=== PATIENT | female | born 1995 | race Caucasian/White ===

== ENCOUNTER 2022-12-09 18:41 | Emergency (ER) | payer BC | END 2022-12-09 20:19 | disposition left against medical advice (07) | LOC: ED 18:41 | DX: Z53.21 Procedure and treatment not carried out due to patient leaving prior to being seen by health care provider (principal) ==

== ENCOUNTER 2023-08-04 09:35 | Inpatient (IN) | payer BC, OTHER ==
[2023-08-04] MEDS ORDERED: STADOL 2 MG IV PRN (16:00)
[2023-08-04] MEDS ORDERED: Zofran 4 MG/2 ML VIAL IV PRN (16:00)
[2023-08-04] MEDS ORDERED: TYLENOL EXTRA STRENGTH 500 MG PO PRN (16:00)
[2023-08-04 16:38] LABS: BASOPHIL % 0.1 % (0.0-0.4); Basophil (Absolute #) 0.02 x10^3/uL (0-0.4); Eosinophil (Absolute #) 0.13 x10^3/uL (0-0.5); Hematocrit 37.1 % (35-47); Hemoglobin 11.3 g/dL (12.0-16.0); IMMATURE GRAN # 0.07 x10^3u/L (0.00-0.03); IMMATURE GRAN % 0.5 % (0.00-0.4); Lymphocyte (Absolute #) 2.23 x10^3/uL (1.0-4.6); Lymphocytes % 16.4 % (24.0-44.0); Mean Cell Volume 82.8 fL (78-100); Mean Corpuscular Hemoglobin 25.2 pg (26-32); Mean Corpuscular Hgb Concent. 30.5 g/dL (32-36); Mean Platelet Volume 10.7 fL (7.5-11.0); Monocyte (Absolute #) 0.71 x10^3/uL (0.0-1.3); Monocytes % 5.2 % (0.0-12.0); Neutrophil % 76.8 % (36.0-66.0); Platelet Count 270 x10^3/uL (150-450); Red Blood Count 4.48 x10^6/uL (4.1-5.4); Red Cell Distribution Width 15.3 % (11.5-14.0); White Blood Count 13.6 x10^3/uL (4.0-10.5)
[2023-08-04 17:10] LABS: ABO TYPING A; Antibody Screen NEGATIVE (NEGATIVE); RH TYPING POSITIVE
[2023-08-04] MEDS: CYTOTEC PO SCH ×2 (17:26→20:06)
[2023-08-04 18:23] LABS: ADD URINE CULTURE? YES (NO); Appearance Cloudy (Clear); Bacteria Many /HPF (None Seen); Bilirubin Negative (Negative); Blood Negative (Negative); Epithelial Cells Many /HPF (None Seen); Glucose, Urine Negative (Negative); Ketones Trace (Negative); Leukocyte Esterase Large (Negative); Nitrite Negative (Negative); Protein,Urine Dip 30 (Negative); Urobilinogen 0.2 mg/dL (0.2); WBC >100 /HPF (0-5)
[2023-08-04 18:32] LABS: Amphetamine,Urine NEGATIVE (NEGATIVE); Barbiturate,Urine NEGATIVE (NEGATIVE); Benzodiazepine,Urine NEGATIVE (NEGATIVE); Cocaine,Urine NEGATIVE (NEGATIVE); Methadone,Urine NEGATIVE (NEGATIVE); Opiate,Urine NEGATIVE (NEGATIVE); PCP,Urine NEGATIVE (NEGATIVE); THC,Urine NEGATIVE (NEGATIVE)
[2023-08-04] MEDS: Lactated Ringers 1,000 ML IV SCH ×2 (18:41→20:04)
[2023-08-04] MEDS ORDERED: FENTANYL 2 MCG-BUPIV 0.125%-NS 250 ML Epidur 250 ML EPIDURAL ONE (22:34)
[2023-08-05] MEDS: Lactated Ringers 1,000 ML IV SCH (00:52)
[2023-08-05] MEDS: CYTOTEC PO SCH ×2 (00:53→03:14)
[2023-08-05] MEDS ORDERED: PITOCIN 30 UNITS/ LR 500 ML 500 ML IV ONE (02:07)
[2023-08-05] MEDS ORDERED: XYLOCAINE 1% HCL 20 ML MDV ONE (02:26)
[2023-08-05] MEDS ORDERED: MOTRIN 400 MG ONE (05:56)
[2023-08-05] MEDS ORDERED: TUCKS TP ONE (06:45)
[2023-08-05] MEDS ORDERED: Dermoplast Spray ONE (06:45)
[2023-08-05] MEDS: TUCKS TP PRN ×2 (06:46→23:30)
[2023-08-05] MEDS: Dermoplast Spray TP PRN (06:46)
[2023-08-05] MEDS ORDERED: Lactated Ringers 1,000 ML IV ONE (08:00)
[2023-08-05] MEDS ORDERED: FENTANYL 2 MCG-BUPIV 0.125%-NS 250 ML Epidur 250 ML EPIDURAL SCH (08:00)
[2023-08-05] MEDS ORDERED: PITOCIN 30 UNITS/ LR 500 ML 30 UNITS/500 ML PLAST..BAG IV SCH ×2 (08:00→13:00)
[2023-08-05] MEDS ORDERED: Ephedrine Sulfate 50 MG/ML IV PRN (08:00)
[2023-08-05] MEDS ORDERED: ROCEPHIN 1 Gm-D5w 50 ml Bag** 1 G/50 ML IVPB IV ONE (08:32)
[2023-08-05] MEDS ORDERED: Docusate Sodium 100 MG ONE (09:44)
[2023-08-05] MEDS: SYNTHROID 50 MCG PO SCH (09:47)
[2023-08-05] MEDS: Docusate Sodium 100 MG PO SCH ×2 (09:48→23:30)
[2023-08-05] MEDS: TYLENOL EXTRA STRENGTH 500 MG PO PRN ×3 (09:59→23:30)
[2023-08-05] MEDS: MOTRIN 400 MG PO PRN ×2 (13:28→20:00)
[2023-08-05 14:10] LABS: Absolute Neutrophil Ct (ANC) 11.32 x10^3/uL (1.4-6.9); BASOPHIL % 0.2 % (0.0-0.4); Basophil (Absolute #) 0.03 x10^3/uL (0-0.4); Eosinophil % 0.2 % (0.00-5.0); Eosinophil (Absolute #) 0.03 x10^3/uL (0-0.5); Hematocrit 28.2 % (35-47); Hemoglobin 8.7 g/dL (12.0-16.0); IMMATURE GRAN # 0.08 x10^3u/L (0.00-0.03); IMMATURE GRAN % 0.6 % (0.00-0.4); Lymphocyte (Absolute #) 2.03 x10^3/uL (1.0-4.6); Lymphocytes % 14.1 % (24.0-44.0); Mean Cell Volume 82.7 fL (78-100); Mean Corpuscular Hemoglobin 25.5 pg (26-32); Mean Corpuscular Hgb Concent. 30.9 g/dL (32-36); Mean Platelet Volume 10.6 fL (7.5-11.0); Monocyte (Absolute #) 0.92 x10^3/uL (0.0-1.3); Monocytes % 6.4 % (0.0-12.0); Neutrophil % 78.5 % (36.0-66.0); Platelet Count 179 x10^3/uL (150-450); Red Blood Count 3.41 x10^6/uL (4.1-5.4); Red Cell Distribution Width 15.7 % (11.5-14.0); White Blood Count 14.4 x10^3/uL (4.0-10.5)
[2023-08-05] MEDS ORDERED: MOTRIN 400 MG PO PRN (15:00)
[2023-08-05] MEDS ORDERED: Adacel Vial IM ONE (15:00)
[2023-08-05] MEDS ORDERED: LANSINOH 40 GM TOP PRN (15:00)
[2023-08-05] MEDS ORDERED: Mylicon 80MG PO PRN (15:00)
[2023-08-05] MEDS: FERREX 150 PO SCH (15:38)
[2023-08-05] MEDS ORDERED: Dulcolax 10 MG SUPP PR PRN (22:00)
[2023-08-05] MEDS ORDERED: Docusate Sodium 100 MG PO SCH (22:00)
[2023-08-06] MEDS: MOTRIN 400 MG PO PRN ×4 (02:36→23:19)
[2023-08-06] MEDS: TYLENOL EXTRA STRENGTH 500 MG PO PRN ×3 (06:34→19:28)
--- NOTE | 2023-08-06 07:59 | PCM.NOTE ---
Date and Time: 08/06/23 0757 Subjective Assessment: ppd 1 sp pt resting in bed and doing well able to ambulate and tolerate diet vss afebrile abd; soft uterus; firm lochia; mild hgb; 8.7 a/p sp ppd 1 with anemia will continue feso4 bid dc home tomorrow fu office 3 wks OBJECTIVE DATA Vital Signs: Vital Signs - 24 hr Temp Pulse Resp BP Pulse Ox 08/06/23 02:30 98.8 F 68 18 133/86 97 08/05/23 19:54 97.9 F 77 18 131/78 98 08/05/23 16:00 98.4 F 80 16 127/82 98 08/05/23 10:00 98.1 F 81 16 134/71 98 Pain Assessment - Last Documented Pain Intensity [Right] 3 Pain Intensity [Lower] 3 Pain Intensity 4 Pain Scale Used 0-10 Pain Scale Intake and Output: Intake & Output 08/03/23 08/04/23 08/05/23 08/06/23 11:59 11:59 11:59 11:59 Intake Total 1600 500 Output Total 200 Balance 1400 500 Weight 66.224 kg Lab Results: Lab Results-Last 24 Hours 08/05/23 Range/Units 14:05 WBC 14.4 H (4.0-10.5) x10^3/uL RBC 3.41 L (4.1-5.4) x10^6/uL Hgb 8.7 L D (12.0-16.0) g/dL Hct 28.2 L (35-47) % MCV 82.7 (78-100) fL MCH 25.5 L (26-32) pg MCHC 30.9 L (32-36) g/dL RDW 15.7 H (11.5-14.0) % Plt Count 179 (150-450) x10^3/uL MPV 10.6 (7.5-11.0) fL Gran % 78.5 H (36.0-66.0) % Immature Gran % (Auto) 0.6 H (0.00-0.4) % Nucleat RBC Rel Count 0.0 (0.00-0.1) % Eos # (Auto) 0.03 (0-0.5) x10^3/uL Immature Gran # (Auto) 0.08 H (0.00-0.03) x10^3u/L Absolute Lymphs (auto) 2.03 (1.0-4.6) x10^3/uL Absolute Monos (auto) 0.92 (0.0-1.3) x10^3/uL Absolute Nucleated RBC 0.00 (0.00-0.01) x10^3u/L Lymphocytes % 14.1 L (24.0-44.0) % Monocytes % 6.4 (0.0-12.0) % Eosinophils % 0.2 (0.00-5.0) % Basophils % 0.2 (0.0-0.4) % Absolute Granulocytes 11.32 H (1.4-6.9) x10^3/uL Basophils # 0.03 (0-0.4) x10^3/uL Assessment/Plan (1) Anemia Current Visit: Yes Status: Acute Code(s): D64.9 - ANEMIA, UNSPECIFIED (2) Vaginal delivery Current Visit: Yes Status: Acute Code(s): O80 - ENCOUNTER FOR FULL-TERM UNCOMPLICATED DELIVERY (3) anemia Current Visit: Yes Status: Acute Code(s): O90.81 - ANEMIA OF THE PUERPERIUM
--- NOTE | 2023-08-06 08:03 | PCM.DS ---
Discharge Summary Date of Admission: 08/04/23 22:10 Admitting Physician: MARYLOU SHERIFF DO Consults: Consults on Case 08/05/23 04:13 Navigation ONCE 08/05/23 08:00 Notify Anesthesia Provider PRN 08/05/23 15:00 Notify Physician ROUTINE Primary Care Provider: JASE SOLORIO NP Allergies Allergies No Known Drug Allergies Allergy (Verified 08/04/23 19:13) Hospital Summary - Hospital Course Hospital Course: pt admitted on aug 04 for bailon induction and oral cytotec at 39 wks gestation and delivered live baby girl via without complication on aug 05. during period did well able to ambulate and tolerate diet however with anemia and was started on feso4 bid. pt at this time stable for discharge on aug 07 and was given rx of iron supplementation to take bid for 30 days. all questions answered to her satisfaction and will fu in office in 3 wks - Vitals & Intake/Output Vital Signs: Vital Signs Temperature 98.8 F 08/06/23 02:30 Pulse Rate 68 08/06/23 02:30 Respiratory Rate 18 08/06/23 02:30 Blood Pressure 133/86 08/06/23 02:30 O2 Sat by Pulse Oximetry 97 08/06/23 02:30 Intake & Output: Intake & Output 08/03/23 08/04/23 08/05/23 08/06/23 11:59 11:59 11:59 11:59 Intake Total 1600 500 Output Total 200 Balance 1400 500 Weight 66.224 kg - Lab Result Diagrams: 08/05/23 14:05 Lab Results-Last 24 Hrs: Lab Results-Last 24 Hours 08/05/23 Range/Units 14:05 WBC 14.4 H (4.0-10.5) x10^3/uL RBC 3.41 L (4.1-5.4) x10^6/uL Hgb 8.7 L D (12.0-16.0) g/dL Hct 28.2 L (35-47) % MCV 82.7 (78-100) fL MCH 25.5 L (26-32) pg MCHC 30.9 L (32-36) g/dL RDW 15.7 H (11.5-14.0) % Plt Count 179 (150-450) x10^3/uL MPV 10.6 (7.5-11.0) fL Gran % 78.5 H (36.0-66.0) % Immature Gran % (Auto) 0.6 H (0.00-0.4) % Nucleat RBC Rel Count 0.0 (0.00-0.1) % Eos # (Auto) 0.03 (0-0.5) x10^3/uL Immature Gran # (Auto) 0.08 H (0.00-0.03) x10^3u/L Absolute Lymphs (auto) 2.03 (1.0-4.6) x10^3/uL Absolute Monos (auto) 0.92 (0.0-1.3) x10^3/uL Absolute Nucleated RBC 0.00 (0.00-0.01) x10^3u/L Lymphocytes % 14.1 L (24.0-44.0) % Monocytes % 6.4 (0.0-12.0) % Eosinophils % 0.2 (0.00-5.0) % Basophils % 0.2 (0.0-0.4) % Absolute Granulocytes 11.32 H (1.4-6.9) x10^3/uL Basophils # 0.03 (0-0.4) x10^3/uL Micro Results-Entire Visit: Microbiology 08/04/23 18:05 Urine Culture - Final Clean Catch Midstream MIXED CRICKET; 3 OR MORE TYPES. NO PREDOMINANT ORGANISM. NO FURTHER WORKUP. PLEASE RESUBMIT IF CLINICALLY INDICATED. Final Diagnosis/Problem List - Final Discharge Diagnosis/Problem (1) Anemia Current Visit: Yes Status: Acute Code(s): D64.9 - ANEMIA, UNSPECIFIED (2) Vaginal delivery Current Visit: Yes Status: Acute Code(s): O80 - ENCOUNTER FOR FULL-TERM UNCOMPLICATED DELIVERY (3) anemia Current Visit: Yes Status: Acute Code(s): O90.81 - ANEMIA OF THE PUERPERIUM - Discharge Disposition: Home, Self-Care Condition: Stable Prescriptions: New Ferrous Sulfate 325 mg [Feosol 325 mg] 325 mg PO BID #60 tablet No Action Levothyroxine Sodium 50 Mcg [Synthroid 50 Mcg] 50 mcg PO DAILY Follow up with: SOLORIO,JASE J., FACILITIES ENGINEERING MANAGER [Primary Care Provider] - MARYLOU SHERIFF DO [ACTIVE STAFF] - 3 weeks
[2023-08-06] MEDS: FERREX 150 PO SCH ×2 (08:43→23:19)
[2023-08-06] MEDS: Docusate Sodium 100 MG PO SCH ×2 (08:44→23:18)
[2023-08-06] MEDS: SYNTHROID 50 MCG PO SCH (11:54)
[2023-08-07 03:38] VITALS: RESP 18; TEMP 98.3
[2023-08-07] MEDS: TYLENOL EXTRA STRENGTH 500 MG PO PRN (03:53)
[2023-08-07] MEDS: TUCKS TP PRN (06:01)
[2023-08-07] MEDS: SYNTHROID 50 MCG PO SCH (07:40)
[2023-08-07] MEDS: Docusate Sodium 100 MG PO SCH (07:40)
[2023-08-07] MEDS: MOTRIN 400 MG PO PRN (07:40)
[2023-08-07] MEDS: FERREX 150 PO SCH (07:40)
[2023-08-07] MEDS: Dermoplast Spray TP PRN (08:27)
[2023-08-07 11:19] VITALS: BP 127/73; PULSE 67; O2SAT 98
== END 2023-08-07 10:00 | disposition home or self-care (01) | DRG 807 ==
LOC: OB 16:02 → OBSVTOIN 22:10 → OB 22:10
PROVIDERS: ADMIT Obstetrics & Gynecology; ATTEND Obstetrics & Gynecology
PROC: 10E0XZZ Delivery of Products of Conception, External Approach (ICD-10-PCS; principal; 2023-08-05)
PROC: 0KQM0ZZ Repair Perineum Muscle, Open Approach (ICD-10-PCS; 2023-08-05)
DX: O70.1 Second degree perineal laceration during delivery (principal); Z37.0 Single live birth; Z3A.39 39 weeks gestation of pregnancy; O90.81 Anemia of the puerperium; Z20.828 Contact with and (suspected) exposure to other viral communicable diseases
CPT/HCPCS: 36415; 80307; 81001; 85025; 86850; 86900; 86901; 87086; 90471; 90715; J0696; J2590; A9270-GY

== ENCOUNTER 2023-08-09 13:53 | Observation (INO) | payer BC, OTHER ==
[2023-08-09] MEDS ORDERED: TUCKS TP PRN (14:08)
[2023-08-09] MEDS ORDERED: MOTRIN 400 MG PO ONE (14:10)
[2023-08-09 14:38] LABS: Absolute Neutrophil Ct (ANC) 6.95 x10^3/uL (1.4-6.9); BASOPHIL % 0.3 % (0.0-0.4); Basophil (Absolute #) 0.03 x10^3/uL (0-0.4); Eosinophil (Absolute #) 0.52 x10^3/uL (0-0.5); Hematocrit 33.8 % (35-47); Hemoglobin 10.4 g/dL (12.0-16.0); IMMATURE GRAN # 0.08 x10^3u/L (0.00-0.03); IMMATURE GRAN % 0.8 % (0.00-0.4); Lymphocyte (Absolute #) 2.32 x10^3/uL (1.0-4.6); Lymphocytes % 22.3 % (24.0-44.0); Mean Cell Volume 82.8 fL (78-100); Mean Corpuscular Hemoglobin 25.5 pg (26-32); Mean Corpuscular Hgb Concent. 30.8 g/dL (32-36); Mean Platelet Volume 9.6 fL (7.5-11.0); Monocyte (Absolute #) 0.51 x10^3/uL (0.0-1.3); Monocytes % 4.9 % (0.0-12.0); Neutrophil % 66.7 % (36.0-66.0); Platelet Count 278 x10^3/uL (150-450); Red Blood Count 4.08 x10^6/uL (4.1-5.4); Red Cell Distribution Width 15.8 % (11.5-14.0); White Blood Count 10.4 x10^3/uL (4.0-10.5)
[2023-08-09 14:47] LABS: Appearance Cloudy (Clear); Bacteria None Seen /HPF (None Seen); Bilirubin Negative (Negative); Blood Large (Negative); Epithelial Cells Few /HPF (None Seen); Glucose, Urine Negative (Negative); Hyaline Casts NONE SEEN /LPF (0-2); Ketones 80 (Negative); Leukocyte Esterase Small (Negative); Nitrite Negative (Negative); Ph 5.5 (4.6-8.0); Protein,Urine Dip 100 (Negative); RBC >100 /HPF (0-5); Specific Gravity >=1.030 (1.005-1.030); WBC 51-100 /HPF (0-5)
[2023-08-09 14:56] LABS: ALBUMIN 3.8 g/dL (3.5-5.0); ANION GAP 13.6 MEQ/L (5-15); BILIRUBIN,TOTAL 0.3 mg/dL (0.2-1.3); Calcium 8.7 mg/dL (8.4-10.2); Creatinine 1 0.6 mg/dL (0.52-1.04); EST GLOMERULAR FILTRATION RATE 127.7 ML/MIN; Potassium 3.9 mmol/L (3.5-5.1); Total Protein 7.3 g/dL (6.3-8.2)
[2023-08-09 14:58] LABS: ADD URINE CULTURE? YES (NO); Amphetamine,Urine NEGATIVE (NEGATIVE); Barbiturate,Urine NEGATIVE (NEGATIVE); Benzodiazepine,Urine NEGATIVE (NEGATIVE); Cocaine,Urine NEGATIVE (NEGATIVE); Methadone,Urine NEGATIVE (NEGATIVE); Opiate,Urine NEGATIVE (NEGATIVE); PCP,Urine NEGATIVE (NEGATIVE); THC,Urine NEGATIVE (NEGATIVE)
[2023-08-09] MEDS ORDERED: APRESOLINE 20 MG/ML INJ IV ONE (15:24)
[2023-08-09] MEDS ORDERED: MOTRIN 400 MG ONE (15:28)
[2023-08-09] MEDS ORDERED: APRESOLINE 20 MG/ML INJ ONE (15:28)
--- NOTE | 2023-08-09 15:34 | ERPHSYRPT ---
- History of Present Illness Time Seen by Provider: 08/09/23 14:30 Source: patient, family Exam Limitations: no limitations Patient Subjective Stated Complaint: HTN- Post op delivery Triage Nursing Assessment: Patient ambulated back to ED and transferred self to bed. Patient A+O x3. Patient's skin pink, warm and dry. Patient came to OB for 48 hour check up after delivery on 08/05/2023. OB nurse noted blood pressure being elevated at 146/98. OB nurse called Dr. Espinosa and was told to send patient to ED for eval and treat. Patient complains of vaginal pain 12/30. Physician History: Patient is a 1 para 0 white female who presents at 4 days for routine check. However elevated blood pressure was noted of 146/98. Patient was sent to the ER with requested lab work to rule out preeclamps ia.Patient denies a headache. Severity: moderate Modifying Factors: Improves With: acetaminophen, ibuprofen Allergies/Adverse Reactions: No Known Drug Allergies Allergy (Verified 08/09/23 14:09) Home Medications: Levothyroxine Sodium 50 Mcg [Synthroid 50 Mcg] 50 mcg PO DAILY 08/04/23 [History] Hx Influenza Vaccination/Date Given: No Hx Pneumococcal Vaccination/Date Given: No Immunizations Up to Date: Yes Travel Risk - International Travel Have you traveled outside of the country in past 3 weeks: No - Coronavirus Screening Are you exhibiting any of the following symptoms?: No Close contact with a COVID-19 positive Pt in past 14-21 Days: No - Vaccine Status Have you recieved a Covid-19 vaccination: No - Review of Systems Constitutional: No Fever, No Chills Eyes: No Symptoms Ears, Nose, & Throat: No Symptoms Respiratory: No Cough, No Dyspnea Cardiac: No Chest Pain, No Edema, No Syncope Abdominal/Gastrointestinal: No Abdominal Pain, No Nausea, No Vomiting, No Diarrh ea Genitourinary Symptoms: No Dysuria Musculoskeletal: No Back Pain, No Neck Pain Skin: No Rash Neurological: No Dizziness, No Focal Weakness, No Sensory Changes Psychological: No Symptoms Endocrine: No Symptoms All Other Systems: Reviewed and Negative - Past Medical History Neurological History: Migraines ENT History: No Pertinent History Cardiac History: No Pertinent History Respiratory History: No Pertinent History Endocrine Medical History: Hypothyroidism Musculoskeletal History: No Pertinent History GI Medical History: No Pertinent History History: No Pertinent History Psycho-Social History: No Pertinent History Female Reproductive Disorders: No Pertinent History - Past Surgical History Past Surgical History: Yes (wisdom tooth extraction) Neuro Surgical History: No Pertinent History Cardiac: No Pertinent History Respiratory: No Pertinent History Gastrointestinal: No Pertinent History Genitourinary: No Pertinent History Musculoskeletal: No Pertinent History Female Surgical History: No Pertinent History - Social History Smoking Status: Never smoker Exposure to second hand smoke: No Drug Use: none Patient Lives Alone: No - Female History Hx Last Menstrual Period: 9 months Hx Now: No - Nursing Vital Signs Nursing Vital Signs: Initial Vital Signs Temperature 98.0 F 08/09/23 14:11 Pulse Rate 81 08/09/23 14:11 Respiratory Rate 18 08/09/23 14:11 Blood Pressure 161/111 08/09/23 14:11 O2 Sat by Pulse Oximetry 98 08/09/23 14:11 Pain Scale Pain Intensity 0 - Physical Exam General Appearance: no apparent distress, alert Eye Exam: PERRL/EOMI, eyes nml inspection Ears, Nose, Throat Exam: normal ENT inspection, TMs normal, pharynx normal, moist mucous membranes Neck Exam: normal inspection, non-tender, supple, full range of motion Respiratory Exam: normal breath sounds, lungs clear, No respiratory distress Cardiovascular Exam: regular rate/rhythm, normal heart sounds, normal peripheral pulses Gastrointestinal/Abdomen Exam: soft, normal bowel sounds, No tenderness, No mass Back Exam: normal inspection, normal range of motion, No CVA tenderness, No vertebral tenderness Extremity Exam: normal inspection, normal range of motion, pelvis stable Neurologic Exam: alert, oriented x 3, cooperative, normal mood/affect, nml cerebellar function, nml station & gait, sensation nml, No motor deficits Skin Exam: normal color, warm, dry, No rash Lymphatic Exam: No adenopathy SpO2: 95 - Course Nursing assessment & vital signs reviewed: Yes Ordered Tests: Active Orders 24 hr Category Date Time Status IV Insertion STAT Care 08/09/23 14:17 Active CBC W DIFF Stat Lab 08/09/23 14:38 Completed CMP Stat Lab 08/09/23 14:38 Completed CULTURE,URINE Stat Lab 08/09/23 14:27 Received D-DIMER QUANTITATIVE Stat Lab 08/09/23 14:38 Received FIBRINOGEN Stat Lab 08/09/23 14:38 Received LDH-LACTATE DEHYDROGENASE Stat Lab 08/09/23 14:38 Completed MAGNESIUM Stat Lab 08/09/23 14:38 Completed PROTIME WITH INR Stat Lab 08/09/23 14:38 Received PTT Stat Lab 08/09/23 14:38 Received UA W/RFX UR CULTURE Stat Lab 08/09/23 14:27 Completed Uric Acid Stat Lab 08/09/23 15:48 Completed Urine Triage Profile Stat Lab 08/09/23 14:27 Completed Medication Summary Generic Name Dose Route Start Last Admin Trade Name Freq PRN Reason Stop Dose Admin Amanda Gutierrez 1 pad 08/09/23 14:08 08/09/23 14:25 Amanda Gutierrez 1 Pad Med..Pad TP 09/08/23 14:07 1 pad Q2H/PRN PRN Administration PAIN Discontinued Medications Generic Name Dose Route Start Last Admin Trade Name Freq PRN Reason Stop Dose Admin Hydralazine HCl 5 mg 08/09/23 15:24 08/09/23 15:29 Hydralazine Hcl 20 Mg/Ml Vial IV 08/09/23 15:25 5 mg STAT ONE Administration Hydralazine HCl Confirm 08/09/23 15:28 Hydralazine Hcl 20 Mg/Ml Vial Administered 08/09/23 15:29 Dose 20 mg .ROUTE .STK-MED ONE Ibuprofen 800 mg 08/09/23 14:10 08/09/23 15:29 Ibuprofen 400 Mg Tablet PO 08/09/23 14:11 800 mg STAT ONE Administration Ibuprofen Confirm 08/09/23 15:28 Ibuprofen 400 Mg Tablet Administered 08/09/23 15:29 Dose 800 mg .ROUTE .STK-MED ONE Lab/Rad Data: Laboratory Result Diagrams 08/09/23 14:38 08/09/23 14:38 Laboratory Results 08/09/23 08/09/23 08/09/23 Range/Units 15:48 14:38 14:38 WBC 10.4 (4.0-10.5) x10^3/uL RBC 4.08 L (4.1-5.4) x10^6/uL Hgb 10.4 L (12.0-16.0) g/dL Hct 33.8 L (35-47) % MCV 82.8 (78-100) fL MCH 25.5 L (26-32) pg MCHC 30.8 L (32-36) g/dL RDW 15.8 H (11.5-14.0) % Plt Count 278 (150-450) x10^3/uL MPV 9.6 (7.5-11.0) fL Gran % 66.7 H (36.0-66.0) % Immature Gran % (Auto) 0.8 H (0.00-0.4) % Nucleat RBC Rel Count 0.0 (0.00-0.1) % Eos # (Auto) 0.52 H (0-0.5) x10^3/uL Immature Gran # (Auto) 0.08 H (0.00-0.03) x10^3u/L Absolute Lymphs (auto) 2.32 (1.0-4.6) x10^3/uL Absolute Monos (auto) 0.51 (0.0-1.3) x10^3/uL Absolute Nucleated RBC 0.00 (0.00-0.01) x10^3u/L Lymphocytes % 22.3 L (24.0-44.0) % Monocytes % 4.9 (0.0-12.0) % Eosinophils % 5.0 (0.00-5.0) % Basophils % 0.3 (0.0-0.4) % Absolute Granulocytes 6.95 H (1.4-6.9) x10^3/uL Basophils # 0.03 (0-0.4) x10^3/uL Sodium 137 (137-145) mmol/L Potassium 3.9 (3.5-5.1) mmol/L Chloride 108 H (98-107) mmol/L Carbon Dioxide 19 L (22-30) mmol/L Anion Gap 13.6 (5-15) MEQ/L BUN 15 (7-17) mg/dL Creatinine 0.60 (0.52-1.04) mg/dL Estimated GFR 127.7 ML/MIN Glucose 82 (74-106) mg/dL Uric Acid 7.1 H (2.6-6.0) mg/dL Calcium 8.7 (8.4-10.2) mg/dL Magnesium 2.0 (1.6-2.3) mg/dL Total Bilirubin 0.30 (0.2-1.3) mg/dL AST 36 (14-36) U/L ALT 39 H (0-35) U/L Alkaline Phosphatase 123 (38-126) U/L Lactate Dehydrogenase 328 H (120-246) U/L Serum Total Protein 7.3 (6.3-8.2) g/dL Albumin 3.8 (3.5-5.0) g/dL Urine Color (Yellow) Urine Appearance (Clear) Urine pH (4.6-8.0) Ur Specific [place] (1.005-1.030) Urine Protein (Negative) Urine Glucose (UA) (Negative) mg/dL Urine Ketones (Negative) Urine Blood (Negative) Urine Nitrite (Negative) Urine Bilirubin (Negative) Urine Urobilinogen (0.2) mg/dL Ur Leukocyte Esterase (Negative) U Hyaline Cast (Auto) (0-2) /LPF Urine Microscopic RBC (0-5) /HPF Urine Microscopic WBC (0-5) /HPF Ur Epithelial Cells (None Seen) /HPF Urine Bacteria (None Seen) /HPF Urine Culture Reflexed (NO) Urine Opiates Level (NEGATIVE) Ur Methadone (NEGATIVE) Urine Barbiturates (NEGATIVE) Ur Phencyclidine (PCP) (NEGATIVE) Urine Amphetamine (NEGATIVE) U Benzodiazepine Level (NEGATIVE) Urine Cocaine (NEGATIVE) Urine Marijuana (THC) (NEGATIVE) 08/09/23 08/09/23 Range/Units 14:27 14:27 WBC (4.0-10.5) x10^3/uL RBC (4.1-5.4) x10^6/uL Hgb (12.0-16.0) g/dL Hct (35-47) % MCV (78-100) fL MCH (26-32) pg MCHC (32-36) g/dL RDW (11.5-14.0) % Plt Count (150-450) x10^3/uL MPV (7.5-11.0) fL Gran % (36.0-66.0) % Immature Gran % (Auto) (0.00-0.4) % Nucleat RBC Rel Count (0.00-0.1) % Eos # (Auto) (0-0.5) x10^3/uL Immature Gran # (Auto) (0.00-0.03) x10^3u/L Absolute Lymphs (auto) (1.0-4.6) x10^3/uL Absolute Monos (auto) (0.0-1.3) x10^3/uL Absolute Nucleated RBC (0.00-0.01) x10^3u/L Lymphocytes % (24.0-44.0) % Monocytes % (0.0-12.0) % Eosinophils % (0.00-5.0) % Basophils % (0.0-0.4) % Absolute Granulocytes (1.4-6.9) x10^3/uL Basophils # (0-0.4) x10^3/uL Sodium (137-145) mmol/L Potassium (3.5-5.1) mmol/L Chloride (98-107) mmol/L Carbon Dioxide (22-30) mmol/L Anion Gap (5-15) MEQ/L BUN (7-17) mg/dL Creatinine (0.52-1.04) mg/dL Estimated GFR ML/MIN Glucose (74-106) mg/dL Uric Acid (2.6-6.0) mg/dL Calcium (8.4-10.2) mg/dL Magnesium (1.6-2.3) mg/dL Total Bilirubin (0.2-1.3) mg/dL AST (14-36) U/L ALT (0-35) U/L Alkaline Phosphatase (38-126) U/L Lactate Dehydrogenase (120-246) U/L Serum Total Protein (6.3-8.2) g/dL Albumin (3.5-5.0) g/dL Urine Color Yellow (Yellow) Urine Appearance Cloudy A (Clear) Urine pH 5.5 (4.6-8.0) Ur Specific [place] >=1.030 A (1.005-1.030) Urine Protein 100 A (Negative) Urine Glucose (UA) Negative (Negative) mg/dL Urine Ketones 80 A (Negative) Urine Blood Large A (Negative) Urine Nitrite Negative (Negative) Urine Bilirubin Negative (Negative) Urine Urobilinogen 1.0 A (0.2) mg/dL Ur Leukocyte Esterase Small A (Negative) U Hyaline Cast (Auto) NONE SEEN (0-2) /LPF Urine Microscopic RBC >100 A (0-5) /HPF Urine Microscopic WBC 51-100 A (0-5) /HPF Ur Epithelial Cells Few (None Seen) /HPF Urine Bacteria None Seen (None Seen) /HPF Urine Culture Reflexed YES (NO) Urine Opiates Level NEGATIVE (NEGATIVE) Ur Methadone NEGATIVE (NEGATIVE) Urine Barbiturates NEGATIVE (NEGATIVE) Ur Phencyclidine (PCP) NEGATIVE (NEGATIVE) Urine Amphetamine NEGATIVE (NEGATIVE) U Benzodiazepine Level NEGATIVE (NEGATIVE) Urine Cocaine NEGATIVE (NEGATIVE) Urine Marijuana (THC) NEGATIVE (NEGATIVE) - Progress Progress: unchanged Discussed with : Marcia Will see patient in: hospital (observation) Medical Desision Making - Independent Historian Additional History obtained from: Spouse - Discussion of managment Care discussed with:: specialist (Dr Espinosa) Agreed on:: Treatment plan Will see patient: in hospital - Diagnostic Testing Diagnostic test were ordered, analyzed, and reviewed by me: Yes - Risk of complications Low Risk: Low risk of morbidity from additional dx testing or treatment - Departure Departure Disposition: Observation Clinical Impression: Preeclampsia in period Condition: Fair Critical Care Time: No Referrals: JASE SOLORIO RESIDENCE LIFE COORDINATOR [Primary Care Provider] - Follow up/PCP as directed
[2023-08-09 16:17] LABS: INR 0.89 (0.8-3.0); PROTIME 9.8 SECONDS (9.4-12.5); PTT 25.2 SECONDS (25.1-36.5)
[2023-08-09 16:20] LABS: D-DIMER QUANTITATIVE 1.58 mg/L (0.0-0.50)
[2023-08-09] MEDS ORDERED: Magnesium Sulfate 40 Gm/1000 Ml H2O Premix*** 1,000 ML IV SCH (16:30)
[2023-08-09] MEDS ORDERED: Ativan 2 MG/1 ML VIAL ONE (16:44)
[2023-08-09] MEDS ORDERED: Trandate 100 MG PO STA (16:45)
[2023-08-09] MEDS ORDERED: TRANDATE 100 MG/20 ML MDV FOR DRIP IV ONE (16:45)
[2023-08-09] MEDS ORDERED: Ativan 2 MG/1 ML VIAL IV ONE (16:46)
[2023-08-09] MEDS ORDERED: Lactated Ringers 1,000 ML IV ONE (16:51)
[2023-08-09] MEDS: Lactated Ringers 1,000 ML IV SCH (16:52)
[2023-08-09] MEDS ORDERED: XYLOCAINE 2% Uro-Jet ONE (17:09)
[2023-08-09] MEDS ORDERED: XYLOCAINE 2% Uro-Jet TOP ONE (17:09)
[2023-08-09] MEDS ORDERED: Zofran 4 MG/2 ML VIAL ONE (17:33)
[2023-08-09] MEDS ORDERED: Zofran 4 MG/2 ML VIAL IV STA (17:33)
[2023-08-09] MEDS ORDERED: TYLENOL 325 MG PO PRN (20:38)
[2023-08-09] MEDS ORDERED: MOTRIN 600 MG PO PRN (20:40)
[2023-08-10] MEDS ORDERED: MOTRIN 400 MG ONE (04:08)
[2023-08-10] MEDS ORDERED: MOTRIN 600 MG PO PRN (04:11)
[2023-08-10] MEDS: MOTRIN 400 MG PO PRN ×2 (04:17→13:10)
[2023-08-10] MEDS: Trandate 100 MG PO SCH ×3 (04:53→16:45)
[2023-08-10] MEDS: Lactated Ringers 1,000 ML IV SCH (05:03)
[2023-08-10] MEDS ORDERED: TYLENOL EXTRA STRENGTH 500 MG ONE (06:14)
[2023-08-10] MEDS: TYLENOL EXTRA STRENGTH 500 MG PO PRN ×3 (06:27→16:05)
[2023-08-10 06:43] LABS: Absolute Neutrophil Ct (ANC) 6.11 x10^3/uL (1.4-6.9); BASOPHIL % 0.3 % (0.0-0.4); Basophil (Absolute #) 0.03 x10^3/uL (0-0.4); Eosinophil % 5.1 % (0.00-5.0); Eosinophil (Absolute #) 0.48 x10^3/uL (0-0.5); Hematocrit 31.4 % (35-47); Hemoglobin 9.7 g/dL (12.0-16.0); IMMATURE GRAN # 0.07 x10^3u/L (0.00-0.03); IMMATURE GRAN % 0.8 % (0.00-0.4); Lymphocyte (Absolute #) 2.09 x10^3/uL (1.0-4.6); Lymphocytes % 22.4 % (24.0-44.0); Mean Cell Volume 82.4 fL (78-100); Mean Corpuscular Hemoglobin 25.5 pg (26-32); Mean Corpuscular Hgb Concent. 30.9 g/dL (32-36); Mean Platelet Volume 9.3 fL (7.5-11.0); Monocyte (Absolute #) 0.55 x10^3/uL (0.0-1.3); Monocytes % 5.9 % (0.0-12.0); Neutrophil % 65.5 % (36.0-66.0); Platelet Count 246 x10^3/uL (150-450); Red Blood Count 3.81 x10^6/uL (4.1-5.4); Red Cell Distribution Width 15.9 % (11.5-14.0); White Blood Count 9.3 x10^3/uL (4.0-10.5)
[2023-08-10 07:08] LABS: ALBUMIN 3.1 g/dL (3.5-5.0); ANION GAP 11.7 MEQ/L (5-15); BILIRUBIN,TOTAL 0.3 mg/dL (0.2-1.3); Creatinine 1 0.45 mg/dL (0.52-1.04); EST GLOMERULAR FILTRATION RATE 136.8 ML/MIN; Potassium 3.4 mmol/L (3.5-5.1); Total Protein 6.1 g/dL (6.3-8.2)
[2023-08-10 07:23] LABS: Calcium 6.2 mg/dL (8.4-10.2)
[2023-08-10 10:15] VITALS: TEMP 97.4
[2023-08-10] MEDS ORDERED: Magnesium Sulfate 40 Gm/1000 Ml H2O Premix*** 1,000 ML IV SCH (11:00)
--- NOTE | 2023-08-10 11:19 | PCM.NOTE ---
Date and Time: 08/10/23 1115 Subjective Assessment: pt sp recently with noted elevated bp when bringing baby for evaluation. pt with headache and was noted having several elevated bp yesterday and was sent to er for evaluation and after labs obtained it was determined to admit pt for magsulfate at 2gm/hr and start labetolol 200mg bid. at this time pt doing better and labs reviewed. vss afebrle abd; soft uterus;firm hgb; 9.7 a/p sp with preeclampsia will dc mgso4 today will continue labetolol 200mg bid will likely dc home today and fu in office next friday OBJECTIVE DATA Vital Signs: Vital Signs - 24 hr Temp Pulse Resp BP BP Pulse Ox 08/10/23 10:00 97.4 F 74 18 122/78 122/78 99 08/10/23 09:00 79 18 128/80 128/80 99 08/10/23 08:00 75 16 127/82 127/82 98 08/10/23 07:00 90 18 127/82 127/82 98 08/10/23 06:00 97.5 F 81 20 123/72 123/72 98 08/10/23 05:00 75 20 117/73 133/81 98 08/10/23 04:00 97.3 F 75 20 117/73 117/73 98 08/10/23 03:00 67 20 119/75 119/75 98 08/10/23 02:00 76 20 122/73 122/73 98 08/10/23 01:00 98.9 F 78 20 134/84 134/84 98 08/10/23 00:00 98.3 F 80 20 131/86 131/86 98 08/09/23 23:00 85 20 127/73 127/73 96 08/09/23 22:00 93 H 20 141/83 141/83 98 08/09/23 21:00 98.3 F 87 20 139/79 139/79 98 08/09/23 20:38 87 20 124/67 96 08/09/23 20:00 82 20 138/75 138/75 98 08/09/23 19:30 104 H 20 146/90 98 08/09/23 19:15 98.3 F 99 H 18 135/84 97 08/09/23 19:00 128 H 20 137/72 98 08/09/23 18:51 95 H 18 135/78 96 08/09/23 18:47 95 H 18 137/83 96 08/09/23 18:42 111 H 18 137/83 97 08/09/23 18:37 109 H 20 140/88 97 08/09/23 18:32 118 H 20 141/95 97 08/09/23 18:27 114 H 20 141/92 97 08/09/23 18:00 97.6 F 122 H 20 139/92 96 08/09/23 17:37 115 H 18 161/114 96 08/09/23 16:54 126 H 18 161/125 96 08/09/23 16:43 122 H 18 169/124 96 08/09/23 16:10 95 08/09/23 16:01 112 H 18 149/99 96 08/09/23 16:00 122 H 20 149/99 97 08/09/23 15:54 112 H 18 147/101 96 08/09/23 15:45 109 H 22 148/103 97 08/09/23 15:30 113 H 21 145/107 96 08/09/23 15:26 89 21 153/112 96 08/09/23 15:15 83 21 145/117 96 08/09/23 15:12 78 16 148/112 148/112 95 08/09/23 14:50 94 H 18 158/121 96 08/09/23 14:37 90 18 144/114 97 08/09/23 14:11 98.0 F 81 18 161/111 98 Pain Assessment - Last Documented Pain Intensity 3 Pain Scale Used 0-10 Pain Scale Intake and Output: Intake & Output 08/07/23 08/08/23 08/09/23 08/10/23 11:59 11:59 11:59 11:59 Intake Total 3415 Output Total 2500 Balance 915 Weight 66.224 kg Lab Results: Lab Results-Last 24 Hours 08/09/23 08/09/23 08/09/23 Range/Units 14:27 14:27 14:38 WBC 10.4 (4.0-10.5) x10^3/uL RBC 4.08 L (4.1-5.4) x10^6/uL Hgb 10.4 L (12.0-16.0) g/dL Hct 33.8 L (35-47) % MCV 82.8 (78-100) fL MCH 25.5 L (26-32) pg MCHC 30.8 L (32-36) g/dL RDW 15.8 H (11.5-14.0) % Plt Count 278 (150-450) x10^3/uL MPV 9.6 (7.5-11.0) fL Gran % 66.7 H (36.0-66.0) % Immature Gran % (Auto) 0.8 H (0.00-0.4) % Nucleat RBC Rel Count 0.0 (0.00-0.1) % Eos # (Auto) 0.52 H (0-0.5) x10^3/uL Immature Gran # (Auto) 0.08 H (0.00-0.03) x10^3u/L Absolute Lymphs (auto) 2.32 (1.0-4.6) x10^3/uL Absolute Monos (auto) 0.51 (0.0-1.3) x10^3/uL Absolute Nucleated RBC 0.00 (0.00-0.01) x10^3u/L Lymphocytes % 22.3 L (24.0-44.0) % Monocytes % 4.9 (0.0-12.0) % Eosinophils % 5.0 (0.00-5.0) % Basophils % 0.3 (0.0-0.4) % Absolute Granulocytes 6.95 H (1.4-6.9) x10^3/uL Basophils # 0.03 (0-0.4) x10^3/uL PT (9.4-12.5) SECONDS INR (0.8-3.0) APTT (25.1-36.5) SECONDS Fibrinogen Activity (200-400) mg/dL D-Dimer (0.0-0.50) mg/L Sodium (137-145) mmol/L Potassium (3.5-5.1) mmol/L Chloride (98-107) mmol/L Carbon Dioxide (22-30) mmol/L Anion Gap (5-15) MEQ/L BUN (7-17) mg/dL Creatinine (0.52-1.04) mg/dL Estimated GFR ML/MIN Glucose (74-106) mg/dL Uric Acid (2.6-6.0) mg/dL Calcium (8.4-10.2) mg/dL Magnesium (1.6-2.3) mg/dL Total Bilirubin (0.2-1.3) mg/dL AST (14-36) U/L ALT (0-35) U/L Alkaline Phosphatase (38-126) U/L Lactate Dehydrogenase (120-246) U/L Serum Total Protein (6.3-8.2) g/dL Albumin (3.5-5.0) g/dL Urine Color Yellow (Yellow) Urine Appearance Cloudy A (Clear) Urine pH 5.5 (4.6-8.0) Ur Specific [place] >=1.030 A (1.005-1.030) Urine Protein 100 A (Negative) Urine Glucose (UA) Negative (Negative) mg/dL Urine Ketones 80 A (Negative) Urine Blood Large A (Negative) Urine Nitrite Negative (Negative) Urine Bilirubin Negative (Negative) Urine Urobilinogen 1.0 A (0.2) mg/dL Ur Leukocyte Esterase Small A (Negative) U Hyaline Cast (Auto) NONE SEEN (0-2) /LPF Urine Microscopic RBC >100 A (0-5) /HPF Urine Microscopic WBC 51-100 A (0-5) /HPF Ur Epithelial Cells Few (None Seen) /HPF Urine Bacteria None Seen (None Seen) /HPF Urine Culture Reflexed YES (NO) Urine Opiates Level NEGATIVE (NEGATIVE) Ur Methadone NEGATIVE (NEGATIVE) Urine Barbiturates NEGATIVE (NEGATIVE) Ur Phencyclidine (PCP) NEGATIVE (NEGATIVE) Urine Amphetamine NEGATIVE (NEGATIVE) U Benzodiazepine Level NEGATIVE (NEGATIVE) Urine Cocaine NEGATIVE (NEGATIVE) Urine Marijuana (THC) NEGATIVE (NEGATIVE) 08/09/23 08/09/23 08/09/23 Range/Units 14:38 14:38 15:48 WBC (4.0-10.5) x10^3/uL RBC (4.1-5.4) x10^6/uL Hgb (12.0-16.0) g/dL Hct (35-47) % MCV (78-100) fL MCH (26-32) pg MCHC (32-36) g/dL RDW (11.5-14.0) % Plt Count (150-450) x10^3/uL MPV (7.5-11.0) fL Gran % (36.0-66.0) % Immature Gran % (Auto) (0.00-0.4) % Nucleat RBC Rel Count (0.00-0.1) % Eos # (Auto) (0-0.5) x10^3/uL Immature Gran # (Auto) (0.00-0.03) x10^3u/L Absolute Lymphs (auto) (1.0-4.6) x10^3/uL Absolute Monos (auto) (0.0-1.3) x10^3/uL Absolute Nucleated RBC (0.00-0.01) x10^3u/L Lymphocytes % (24.0-44.0) % Monocytes % (0.0-12.0) % Eosinophils % (0.00-5.0) % Basophils % (0.0-0.4) % Absolute Granulocytes (1.4-6.9) x10^3/uL Basophils # (0-0.4) x10^3/uL PT 9.8 (9.4-12.5) SECONDS INR 0.89 (0.8-3.0) APTT 25.2 (25.1-36.5) SECONDS Fibrinogen Activity 487 H (200-400) mg/dL D-Dimer 1.58 H* (0.0-0.50) mg/L Sodium 137 (137-145) mmol/L Potassium 3.9 (3.5-5.1) mmol/L Chloride 108 H (98-107) mmol/L Carbon Dioxide 19 L (22-30) mmol/L Anion Gap 13.6 (5-15) MEQ/L BUN 15 (7-17) mg/dL Creatinine 0.60 (0.52-1.04) mg/dL Estimated GFR 127.7 ML/MIN Glucose 82 (74-106) mg/dL Uric Acid 7.1 H (2.6-6.0) mg/dL Calcium 8.7 (8.4-10.2) mg/dL Magnesium 2.0 (1.6-2.3) mg/dL Total Bilirubin 0.30 (0.2-1.3) mg/dL AST 36 (14-36) U/L ALT 39 H (0-35) U/L Alkaline Phosphatase 123 (38-126) U/L Lactate Dehydrogenase 328 H (120-246) U/L Serum Total Protein 7.3 (6.3-8.2) g/dL Albumin 3.8 (3.5-5.0) g/dL Urine Color (Yellow) Urine Appearance (Clear) Urine pH (4.6-8.0) Ur Specific [place] (1.005-1.030) Urine Protein (Negative) Urine Glucose (UA) (Negative) mg/dL Urine Ketones (Negative) Urine Blood (Negative) Urine Nitrite (Negative) Urine Bilirubin (Negative) Urine Urobilinogen (0.2) mg/dL Ur Leukocyte Esterase (Negative) U Hyaline Cast (Auto) (0-2) /LPF Urine Microscopic RBC (0-5) /HPF Urine Microscopic WBC (0-5) /HPF Ur Epithelial Cells (None Seen) /HPF Urine Bacteria (None Seen) /HPF Urine Culture Reflexed (NO) Urine Opiates Level (NEGATIVE) Ur Methadone (NEGATIVE) Urine Barbiturates (NEGATIVE) Ur Phencyclidine (PCP) (NEGATIVE) Urine Amphetamine (NEGATIVE) U Benzodiazepine Level (NEGATIVE) Urine Cocaine (NEGATIVE) Urine Marijuana (THC) (NEGATIVE) 08/10/23 08/10/23 08/10/23 Range/Units 00:32 06:42 06:42 WBC 9.3 (4.0-10.5) x10^3/uL RBC 3.81 L (4.1-5.4) x10^6/uL Hgb 9.7 L (12.0-16.0) g/dL Hct 31.4 L (35-47) % MCV 82.4 (78-100) fL MCH 25.5 L (26-32) pg MCHC 30.9 L (32-36) g/dL RDW 15.9 H (11.5-14.0) % Plt Count 246 (150-450) x10^3/uL MPV 9.3 (7.5-11.0) fL Gran % 65.5 (36.0-66.0) % Immature Gran % (Auto) 0.8 H (0.00-0.4) % Nucleat RBC Rel Count 0.0 (0.00-0.1) % Eos # (Auto) 0.48 (0-0.5) x10^3/uL Immature Gran # (Auto) 0.07 H (0.00-0.03) x10^3u/L Absolute Lymphs (auto) 2.09 (1.0-4.6) x10^3/uL Absolute Monos (auto) 0.55 (0.0-1.3) x10^3/uL Absolute Nucleated RBC 0.00 (0.00-0.01) x10^3u/L Lymphocytes % 22.4 L (24.0-44.0) % Monocytes % 5.9 (0.0-12.0) % Eosinophils % 5.1 H (0.00-5.0) % Basophils % 0.3 (0.0-0.4) % Absolute Granulocytes 6.11 (1.4-6.9) x10^3/uL Basophils # 0.03 (0-0.4) x10^3/uL PT (9.4-12.5) SECONDS INR (0.8-3.0) APTT (25.1-36.5) SECONDS Fibrinogen Activity (200-400) mg/dL D-Dimer (0.0-0.50) mg/L Sodium (137-145) mmol/L Potassium (3.5-5.1) mmol/L Chloride (98-107) mmol/L Carbon Dioxide (22-30) mmol/L Anion Gap (5-15) MEQ/L BUN (7-17) mg/dL Creatinine (0.52-1.04) mg/dL Estimated GFR ML/MIN Glucose (74-106) mg/dL Uric Acid (2.6-6.0) mg/dL Calcium (8.4-10.2) mg/dL Magnesium 6.4 H* 7.1 H* (1.6-2.3) mg/dL Total Bilirubin (0.2-1.3) mg/dL AST (14-36) U/L ALT (0-35) U/L Alkaline Phosphatase (38-126) U/L Lactate Dehydrogenase (120-246) U/L Serum Total Protein (6.3-8.2) g/dL Albumin (3.5-5.0) g/dL Urine Color (Yellow) Urine Appearance (Clear) Urine pH (4.6-8.0) Ur Specific [place] (1.005-1.030) Urine Protein (Negative) Urine Glucose (UA) (Negative) mg/dL Urine Ketones (Negative) Urine Blood (Negative) Urine Nitrite (Negative) Urine Bilirubin (Negative) Urine Urobilinogen (0.2) mg/dL Ur Leukocyte Esterase (Negative) U Hyaline Cast (Auto) (0-2) /LPF Urine Microscopic RBC (0-5) /HPF Urine Microscopic WBC (0-5) /HPF Ur Epithelial Cells (None Seen) /HPF Urine Bacteria (None Seen) /HPF Urine Culture Reflexed (NO) Urine Opiates Level (NEGATIVE) Ur Methadone (NEGATIVE) Urine Barbiturates (NEGATIVE) Ur Phencyclidine (PCP) (NEGATIVE) Urine Amphetamine (NEGATIVE) U Benzodiazepine Level (NEGATIVE) Urine Cocaine (NEGATIVE) Urine Marijuana (THC) (NEGATIVE) 08/10/23 Range/Units 06:42 WBC (4.0-10.5) x10^3/uL RBC (4.1-5.4) x10^6/uL Hgb (12.0-16.0) g/dL Hct (35-47) % MCV (78-100) fL MCH (26-32) pg MCHC (32-36) g/dL RDW (11.5-14.0) % Plt Count (150-450) x10^3/uL MPV (7.5-11.0) fL Gran % (36.0-66.0) % Immature Gran % (Auto) (0.00-0.4) % Nucleat RBC Rel Count (0.00-0.1) % Eos # (Auto) (0-0.5) x10^3/uL Immature Gran # (Auto) (0.00-0.03) x10^3u/L Absolute Lymphs (auto) (1.0-4.6) x10^3/uL Absolute Monos (auto) (0.0-1.3) x10^3/uL Absolute Nucleated RBC (0.00-0.01) x10^3u/L Lymphocytes % (24.0-44.0) % Monocytes % (0.0-12.0) % Eosinophils % (0.00-5.0) % Basophils % (0.0-0.4) % Absolute Granulocytes (1.4-6.9) x10^3/uL Basophils # (0-0.4) x10^3/uL PT (9.4-12.5) SECONDS INR (0.8-3.0) APTT (25.1-36.5) SECONDS Fibrinogen Activity (200-400) mg/dL D-Dimer (0.0-0.50) mg/L Sodium 135 L (137-145) mmol/L Potassium 3.4 L (3.5-5.1) mmol/L Chloride 107 (98-107) mmol/L Carbon Dioxide 20 L (22-30) mmol/L Anion Gap 11.7 (5-15) MEQ/L BUN 7 (7-17) mg/dL Creatinine 0.45 L (0.52-1.04) mg/dL Estimated GFR 136.8 ML/MIN Glucose 96 (74-106) mg/dL Uric Acid (2.6-6.0) mg/dL Calcium 6.2 L D (8.4-10.2) mg/dL Magnesium (1.6-2.3) mg/dL Total Bilirubin 0.30 (0.2-1.3) mg/dL AST 27 (14-36) U/L ALT 28 (0-35) U/L Alkaline Phosphatase 118 (38-126) U/L Lactate Dehydrogenase (120-246) U/L Serum Total Protein 6.1 L (6.3-8.2) g/dL Albumin 3.1 L (3.5-5.0) g/dL Urine Color (Yellow) Urine Appearance (Clear) Urine pH (4.6-8.0) Ur Specific [place] (1.005-1.030) Urine Protein (Negative) Urine Glucose (UA) (Negative) mg/dL Urine Ketones (Negative) Urine Blood (Negative) Urine Nitrite (Negative) Urine Bilirubin (Negative) Urine Urobilinogen (0.2) mg/dL Ur Leukocyte Esterase (Negative) U Hyaline Cast (Auto) (0-2) /LPF Urine Microscopic RBC (0-5) /HPF Urine Microscopic WBC (0-5) /HPF Ur Epithelial Cells (None Seen) /HPF Urine Bacteria (None Seen) /HPF Urine Culture Reflexed (NO) Urine Opiates Level (NEGATIVE) Ur Methadone (NEGATIVE) Urine Barbiturates (NEGATIVE) Ur Phencyclidine (PCP) (NEGATIVE) Urine Amphetamine (NEGATIVE) U Benzodiazepine Level (NEGATIVE) Urine Cocaine (NEGATIVE) Urine Marijuana (THC) (NEGATIVE) Assessment/Plan (1) Preeclampsia in period Current Visit: Yes Status: Acute Code(s): O14.95 - UNSPECIFIED PRE-ECLAMPS IA, COMPLICATING THE PUERPERIUM
--- NOTE | 2023-08-10 11:23 | PCM.HP ---
History of Present Illness - Chief Complaint Chief Complaint: Preeclampsia in period History of Present Illness: is a 27 year old female. pt admitted for noted having elevated bp while bringing her baby for evaluation into labor delivery. pt also noted having headache. pt sent to er for evaluation and after labs obtained it was determined to admit and start magso4 at 2gm/hr and start labetolol 200mg bid. pt was already given hydralazine 5mg iv in er secondary to severe htn. pt was then stabilized and sent to labor delivery. pt at this time has had stable bp and labs redone were much improved. pt at this time will have her magso4 discontinued and if bp stable by 4 pm will dc home with fu in office in 1 wk for bp evaluation. pt will be sent a prescription for labetolol to her pharmacy as well as antibiotic for uti. all questions answered to her satisfaction. Medications & Allergies Home Medications: Home Medication List Levothyroxine Sodium 50 Mcg [Synthroid 50 Mcg] 50 mcg PO DAILY 08/04/23 [History Confirmed 08/09/23] Ferrous Sulfate 325 mg [Feosol 325 mg] 325 mg PO BID #60 tablet 08/06/23 [Rx Confirmed 08/09/23] Allergies/Adverse Reactions: Allergies Allergy/AdvReac Type Severity Reaction Status Date / Time No Known Drug Allergies Allergy Verified 08/09/23 14:09 - Past Medical History Past Medical History: Yes Neurological History: Migraines ENT History: No Pertinent History Cardiac History: No Pertinent History Respiratory History: No Pertinent History Endocrine Medical History: Hypothyroidism Musculoskelatal History: No Pertinent History GI Medical History: No Pertinent History History: No Pertinent History Pyscho-Social History: No Pertinent History Reproductive Disorders: No Pertinent History - Female History Hx Last Menstrual Period: 9 months Are you now?: No - Past Surgical History Past Surgical History: Yes (wisdom tooth extraction) Neuro Surgical History: No Pertinent History Cardiac History: No Pertinent History Respiratory Surgery: No Pertinent History GI Surgical History: No Pertinent History Genitourinary Surgical Hx: No Pertinent History Musculskeletal Surgical Hx: No Pertinent History Female Surgical History: No Pertinent History - Social History Smoking Status: Never smoker Exposure to second hand smoke: No Alcohol: None Drug Use: none - Physical Exam Vital Signs: Vital Signs - 24 hr Temp Pulse Resp BP BP Pulse Ox 08/10/23 10:00 97.4 F 74 18 122/78 122/78 99 08/10/23 09:00 79 18 128/80 128/80 99 08/10/23 08:00 75 16 127/82 127/82 98 08/10/23 07:00 90 18 127/82 127/82 98 08/10/23 06:00 97.5 F 81 20 123/72 123/72 98 08/10/23 05:00 75 20 117/73 133/81 98 08/10/23 04:00 97.3 F 75 20 117/73 117/73 98 08/10/23 03:00 67 20 119/75 119/75 98 08/10/23 02:00 76 20 122/73 122/73 98 08/10/23 01:00 98.9 F 78 20 134/84 134/84 98 08/10/23 00:00 98.3 F 80 20 131/86 131/86 98 08/09/23 23:00 85 20 127/73 127/73 96 08/09/23 22:00 93 H 20 141/83 141/83 98 08/09/23 21:00 98.3 F 87 20 139/79 139/79 98 08/09/23 20:38 87 20 124/67 96 08/09/23 20:00 82 20 138/75 138/75 98 08/09/23 19:30 104 H 20 146/90 98 08/09/23 19:15 98.3 F 99 H 18 135/84 97 08/09/23 19:00 128 H 20 137/72 98 08/09/23 18:51 95 H 18 135/78 96 08/09/23 18:47 95 H 18 137/83 96 08/09/23 18:42 111 H 18 137/83 97 08/09/23 18:37 109 H 20 140/88 97 08/09/23 18:32 118 H 20 141/95 97 08/09/23 18:27 114 H 20 141/92 97 08/09/23 18:00 97.6 F 122 H 20 139/92 96 08/09/23 17:37 115 H 18 161/114 96 08/09/23 16:54 126 H 18 161/125 96 08/09/23 16:43 122 H 18 169/124 96 08/09/23 16:10 95 08/09/23 16:01 112 H 18 149/99 96 08/09/23 16:00 122 H 20 149/99 97 08/09/23 15:54 112 H 18 147/101 96 08/09/23 15:45 109 H 22 148/103 97 08/09/23 15:30 113 H 21 145/107 96 08/09/23 15:26 89 21 153/112 96 08/09/23 15:15 83 21 145/117 96 08/09/23 15:12 78 16 148/112 148/112 95 08/09/23 14:50 94 H 18 158/121 96 08/09/23 14:37 90 18 144/114 97 08/09/23 14:11 98.0 F 81 18 161/111 98 Results - Labs Lab/Micro Results: Lab Results-Last 24 Hours 08/09/23 08/09/23 08/09/23 Range/Units 14:27 14:27 14:38 WBC 10.4 (4.0-10.5) x10^3/uL RBC 4.08 L (4.1-5.4) x10^6/uL Hgb 10.4 L (12.0-16.0) g/dL Hct 33.8 L (35-47) % MCV 82.8 (78-100) fL MCH 25.5 L (26-32) pg MCHC 30.8 L (32-36) g/dL RDW 15.8 H (11.5-14.0) % Plt Count 278 (150-450) x10^3/uL MPV 9.6 (7.5-11.0) fL Gran % 66.7 H (36.0-66.0) % Immature Gran % (Auto) 0.8 H (0.00-0.4) % Nucleat RBC Rel Count 0.0 (0.00-0.1) % Eos # (Auto) 0.52 H (0-0.5) x10^3/uL Immature Gran # (Auto) 0.08 H (0.00-0.03) x10^3u/L Absolute Lymphs (auto) 2.32 (1.0-4.6) x10^3/uL Absolute Monos (auto) 0.51 (0.0-1.3) x10^3/uL Absolute Nucleated RBC 0.00 (0.00-0.01) x10^3u/L Lymphocytes % 22.3 L (24.0-44.0) % Monocytes % 4.9 (0.0-12.0) % Eosinophils % 5.0 (0.00-5.0) % Basophils % 0.3 (0.0-0.4) % Absolute Granulocytes 6.95 H (1.4-6.9) x10^3/uL Basophils # 0.03 (0-0.4) x10^3/uL PT (9.4-12.5) SECONDS INR (0.8-3.0) APTT (25.1-36.5) SECONDS Fibrinogen Activity (200-400) mg/dL D-Dimer (0.0-0.50) mg/L Sodium (137-145) mmol/L Potassium (3.5-5.1) mmol/L Chloride (98-107) mmol/L Carbon Dioxide (22-30) mmol/L Anion Gap (5-15) MEQ/L BUN (7-17) mg/dL Creatinine (0.52-1.04) mg/dL Estimated GFR ML/MIN Glucose (74-106) mg/dL Uric Acid (2.6-6.0) mg/dL Calcium (8.4-10.2) mg/dL Magnesium (1.6-2.3) mg/dL Total Bilirubin (0.2-1.3) mg/dL AST (14-36) U/L ALT (0-35) U/L Alkaline Phosphatase (38-126) U/L Lactate Dehydrogenase (120-246) U/L Serum Total Protein (6.3-8.2) g/dL Albumin (3.5-5.0) g/dL Urine Color Yellow (Yellow) Urine Appearance Cloudy A (Clear) Urine pH 5.5 (4.6-8.0) Ur Specific [place] >=1.030 A (1.005-1.030) Urine Protein 100 A (Negative) Urine Glucose (UA) Negative (Negative) mg/dL Urine Ketones 80 A (Negative) Urine Blood Large A (Negative) Urine Nitrite Negative (Negative) Urine Bilirubin Negative (Negative) Urine Urobilinogen 1.0 A (0.2) mg/dL Ur Leukocyte Esterase Small A (Negative) U Hyaline Cast (Auto) NONE SEEN (0-2) /LPF Urine Microscopic RBC >100 A (0-5) /HPF Urine Microscopic WBC 51-100 A (0-5) /HPF Ur Epithelial Cells Few (None Seen) /HPF Urine Bacteria None Seen (None Seen) /HPF Urine Culture Reflexed YES (NO) Urine Opiates Level NEGATIVE (NEGATIVE) Ur Methadone NEGATIVE (NEGATIVE) Urine Barbiturates NEGATIVE (NEGATIVE) Ur Phencyclidine (PCP) NEGATIVE (NEGATIVE) Urine Amphetamine NEGATIVE (NEGATIVE) U Benzodiazepine Level NEGATIVE (NEGATIVE) Urine Cocaine NEGATIVE (NEGATIVE) Urine Marijuana (THC) NEGATIVE (NEGATIVE) 08/09/23 08/09/23 08/09/23 Range/Units 14:38 14:38 15:48 WBC (4.0-10.5) x10^3/uL RBC (4.1-5.4) x10^6/uL Hgb (12.0-16.0) g/dL Hct (35-47) % MCV (78-100) fL MCH (26-32) pg MCHC (32-36) g/dL RDW (11.5-14.0) % Plt Count (150-450) x10^3/uL MPV (7.5-11.0) fL Gran % (36.0-66.0) % Immature Gran % (Auto) (0.00-0.4) % Nucleat RBC Rel Count (0.00-0.1) % Eos # (Auto) (0-0.5) x10^3/uL Immature Gran # (Auto) (0.00-0.03) x10^3u/L Absolute Lymphs (auto) (1.0-4.6) x10^3/uL Absolute Monos (auto) (0.0-1.3) x10^3/uL Absolute Nucleated RBC (0.00-0.01) x10^3u/L Lymphocytes % (24.0-44.0) % Monocytes % (0.0-12.0) % Eosinophils % (0.00-5.0) % Basophils % (0.0-0.4) % Absolute Granulocytes (1.4-6.9) x10^3/uL Basophils # (0-0.4) x10^3/uL PT 9.8 (9.4-12.5) SECONDS INR 0.89 (0.8-3.0) APTT 25.2 (25.1-36.5) SECONDS Fibrinogen Activity 487 H (200-400) mg/dL D-Dimer 1.58 H* (0.0-0.50) mg/L Sodium 137 (137-145) mmol/L Potassium 3.9 (3.5-5.1) mmol/L Chloride 108 H (98-107) mmol/L Carbon Dioxide 19 L (22-30) mmol/L Anion Gap 13.6 (5-15) MEQ/L BUN 15 (7-17) mg/dL Creatinine 0.60 (0.52-1.04) mg/dL Estimated GFR 127.7 ML/MIN Glucose 82 (74-106) mg/dL Uric Acid 7.1 H (2.6-6.0) mg/dL Calcium 8.7 (8.4-10.2) mg/dL Magnesium 2.0 (1.6-2.3) mg/dL Total Bilirubin 0.30 (0.2-1.3) mg/dL AST 36 (14-36) U/L ALT 39 H (0-35) U/L Alkaline Phosphatase 123 (38-126) U/L Lactate Dehydrogenase 328 H (120-246) U/L Serum Total Protein 7.3 (6.3-8.2) g/dL Albumin 3.8 (3.5-5.0) g/dL Urine Color (Yellow) Urine Appearance (Clear) Urine pH (4.6-8.0) Ur Specific [place] (1.005-1.030) Urine Protein (Negative) Urine Glucose (UA) (Negative) mg/dL Urine Ketones (Negative) Urine Blood (Negative) Urine Nitrite (Negative) Urine Bilirubin (Negative) Urine Urobilinogen (0.2) mg/dL Ur Leukocyte Esterase (Negative) U Hyaline Cast (Auto) (0-2) /LPF Urine Microscopic RBC (0-5) /HPF Urine Microscopic WBC (0-5) /HPF Ur Epithelial Cells (None Seen) /HPF Urine Bacteria (None Seen) /HPF Urine Culture Reflexed (NO) Urine Opiates Level (NEGATIVE) Ur Methadone (NEGATIVE) Urine Barbiturates (NEGATIVE) Ur Phencyclidine (PCP) (NEGATIVE) Urine Amphetamine (NEGATIVE) U Benzodiazepine Level (NEGATIVE) Urine Cocaine (NEGATIVE) Urine Marijuana (THC) (NEGATIVE) 08/10/23 08/10/23 08/10/23 Range/Units 00:32 06:42 06:42 WBC 9.3 (4.0-10.5) x10^3/uL RBC 3.81 L (4.1-5.4) x10^6/uL Hgb 9.7 L (12.0-16.0) g/dL Hct 31.4 L (35-47) % MCV 82.4 (78-100) fL MCH 25.5 L (26-32) pg MCHC 30.9 L (32-36) g/dL RDW 15.9 H (11.5-14.0) % Plt Count 246 (150-450) x10^3/uL MPV 9.3 (7.5-11.0) fL Gran % 65.5 (36.0-66.0) % Immature Gran % (Auto) 0.8 H (0.00-0.4) % Nucleat RBC Rel Count 0.0 (0.00-0.1) % Eos # (Auto) 0.48 (0-0.5) x10^3/uL Immature Gran # (Auto) 0.07 H (0.00-0.03) x10^3u/L Absolute Lymphs (auto) 2.09 (1.0-4.6) x10^3/uL Absolute Monos (auto) 0.55 (0.0-1.3) x10^3/uL Absolute Nucleated RBC 0.00 (0.00-0.01) x10^3u/L Lymphocytes % 22.4 L (24.0-44.0) % Monocytes % 5.9 (0.0-12.0) % Eosinophils % 5.1 H (0.00-5.0) % Basophils % 0.3 (0.0-0.4) % Absolute Granulocytes 6.11 (1.4-6.9) x10^3/uL Basophils # 0.03 (0-0.4) x10^3/uL PT (9.4-12.5) SECONDS INR (0.8-3.0) APTT (25.1-36.5) SECONDS Fibrinogen Activity (200-400) mg/dL D-Dimer (0.0-0.50) mg/L Sodium (137-145) mmol/L Potassium (3.5-5.1) mmol/L Chloride (98-107) mmol/L Carbon Dioxide (22-30) mmol/L Anion Gap (5-15) MEQ/L BUN (7-17) mg/dL Creatinine (0.52-1.04) mg/dL Estimated GFR ML/MIN Glucose (74-106) mg/dL Uric Acid (2.6-6.0) mg/dL Calcium (8.4-10.2) mg/dL Magnesium 6.4 H* 7.1 H* (1.6-2.3) mg/dL Total Bilirubin (0.2-1.3) mg/dL AST (14-36) U/L ALT (0-35) U/L Alkaline Phosphatase (38-126) U/L Lactate Dehydrogenase (120-246) U/L Serum Total Protein (6.3-8.2) g/dL Albumin (3.5-5.0) g/dL Urine Color (Yellow) Urine Appearance (Clear) Urine pH (4.6-8.0) Ur Specific [place] (1.005-1.030) Urine Protein (Negative) Urine Glucose (UA) (Negative) mg/dL Urine Ketones (Negative) Urine Blood (Negative) Urine Nitrite (Negative) Urine Bilirubin (Negative) Urine Urobilinogen (0.2) mg/dL Ur Leukocyte Esterase (Negative) U Hyaline Cast (Auto) (0-2) /LPF Urine Microscopic RBC (0-5) /HPF Urine Microscopic WBC (0-5) /HPF Ur Epithelial Cells (None Seen) /HPF Urine Bacteria (None Seen) /HPF Urine Culture Reflexed (NO) Urine Opiates Level (NEGATIVE) Ur Methadone (NEGATIVE) Urine Barbiturates (NEGATIVE) Ur Phencyclidine (PCP) (NEGATIVE) Urine Amphetamine (NEGATIVE) U Benzodiazepine Level (NEGATIVE) Urine Cocaine (NEGATIVE) Urine Marijuana (THC) (NEGATIVE) 08/10/23 Range/Units 06:42 WBC (4.0-10.5) x10^3/uL RBC (4.1-5.4) x10^6/uL Hgb (12.0-16.0) g/dL Hct (35-47) % MCV (78-100) fL MCH (26-32) pg MCHC (32-36) g/dL RDW (11.5-14.0) % Plt Count (150-450) x10^3/uL MPV (7.5-11.0) fL Gran % (36.0-66.0) % Immature Gran % (Auto) (0.00-0.4) % Nucleat RBC Rel Count (0.00-0.1) % Eos # (Auto) (0-0.5) x10^3/uL Immature Gran # (Auto) (0.00-0.03) x10^3u/L Absolute Lymphs (auto) (1.0-4.6) x10^3/uL Absolute Monos (auto) (0.0-1.3) x10^3/uL Absolute Nucleated RBC (0.00-0.01) x10^3u/L Lymphocytes % (24.0-44.0) % Monocytes % (0.0-12.0) % Eosinophils % (0.00-5.0) % Basophils % (0.0-0.4) % Absolute Granulocytes (1.4-6.9) x10^3/uL Basophils # (0-0.4) x10^3/uL PT (9.4-12.5) SECONDS INR (0.8-3.0) APTT (25.1-36.5) SECONDS Fibrinogen Activity (200-400) mg/dL D-Dimer (0.0-0.50) mg/L Sodium 135 L (137-145) mmol/L Potassium 3.4 L (3.5-5.1) mmol/L Chloride 107 (98-107) mmol/L Carbon Dioxide 20 L (22-30) mmol/L Anion Gap 11.7 (5-15) MEQ/L BUN 7 (7-17) mg/dL Creatinine 0.45 L (0.52-1.04) mg/dL Estimated GFR 136.8 ML/MIN Glucose 96 (74-106) mg/dL Uric Acid (2.6-6.0) mg/dL Calcium 6.2 L D (8.4-10.2) mg/dL Magnesium (1.6-2.3) mg/dL Total Bilirubin 0.30 (0.2-1.3) mg/dL AST 27 (14-36) U/L ALT 28 (0-35) U/L Alkaline Phosphatase 118 (38-126) U/L Lactate Dehydrogenase (120-246) U/L Serum Total Protein 6.1 L (6.3-8.2) g/dL Albumin 3.1 L (3.5-5.0) g/dL Urine Color (Yellow) Urine Appearance (Clear) Urine pH (4.6-8.0) Ur Specific [place] (1.005-1.030) Urine Protein (Negative) Urine Glucose (UA) (Negative) mg/dL Urine Ketones (Negative) Urine Blood (Negative) Urine Nitrite (Negative) Urine Bilirubin (Negative) Urine Urobilinogen (0.2) mg/dL Ur Leukocyte Esterase (Negative) U Hyaline Cast (Auto) (0-2) /LPF Urine Microscopic RBC (0-5) /HPF Urine Microscopic WBC (0-5) /HPF Ur Epithelial Cells (None Seen) /HPF Urine Bacteria (None Seen) /HPF Urine Culture Reflexed (NO) Urine Opiates Level (NEGATIVE) Ur Methadone (NEGATIVE) Urine Barbiturates (NEGATIVE) Ur Phencyclidine (PCP) (NEGATIVE) Urine Amphetamine (NEGATIVE) U Benzodiazepine Level (NEGATIVE) Urine Cocaine (NEGATIVE) Urine Marijuana (THC) (NEGATIVE) Microbiology 08/09/23 14:27 Urine Culture - Preliminary Clean Catch Midstream GRAM POSITIVE ID AND SENSITIVITY PENDING Assessment/Plan (1) Preeclampsia in period Current Visit: Yes Status: Acute Code(s): O14.95 - UNSPECIFIED PRE- ECLAMPSIA, COMPLICATING THE PUERPERIUM (2) Urinary tract bacterial infections Current Visit: Yes Status: Acute Code(s): N39.0 - URINARY TRACT INFECTION, SITE NOT SPECIFIED; A49.9 - BACTERIAL INFECTION, UNSPECIFIED
--- NOTE | 2023-08-10 11:27 | PCM.DS ---
Discharge Summary Date of Admission: 08/09/23 17:57 Admitting Physician: MARYLOU SHERIFF DO Consults: Consults on Case 08/09/23 16:21 Notify Physician ROUTINE Primary Care Provider: JASE SOLORIO NP Allergies Allergies No Known Drug Allergies Allergy (Verified 08/09/23 14:09) Hospital Summary - Hospital Course Hospital Course: pt admitted on aug 09 for preecalmpsia since she delivered several days ago and was placed on magso4 at 2gm/hr and bp stabilized while on labetolol 200mg bid and will be sent home on labetolol 200mg bid. pt was alson noted having uti and rocephin 1gm given and rx for macrobid bid 7 days was sent to her pharmacy. pt at this time had labs redrawn in am and improved since admission. pt feeling better at this time and will be stable for discharge with fu in office in 1 wk for bp evaluation. - Vitals & Intake/Output Vital Signs: Vital Signs Temperature 97.4 F 08/10/23 10:00 Pulse Rate 74 08/10/23 10:00 Respiratory Rate 18 08/10/23 10:00 Blood Pressure 122/78 08/10/23 10:00 O2 Sat by Pulse Oximetry 99 08/10/23 10:00 Intake & Output: Intake & Output 08/07/23 08/08/23 08/09/23 08/10/23 11:59 11:59 11:59 11:59 Intake Total 3415 Output Total 2500 Balance 915 Weight 66.224 kg - Lab Result Diagrams: 08/10/23 06:42 08/10/23 06:42 Lab Results-Last 24 Hrs: Lab Results-Last 24 Hours 08/09/23 08/09/23 08/09/23 Range/Units 14:27 14:27 14:38 WBC 10.4 (4.0-10.5) x10^3/uL RBC 4.08 L (4.1-5.4) x10^6/uL Hgb 10.4 L (12.0-16.0) g/dL Hct 33.8 L (35-47) % MCV 82.8 (78-100) fL MCH 25.5 L (26-32) pg MCHC 30.8 L (32-36) g/dL RDW 15.8 H (11.5-14.0) % Plt Count 278 (150-450) x10^3/uL MPV 9.6 (7.5-11.0) fL Gran % 66.7 H (36.0-66.0) % Immature Gran % (Auto) 0.8 H (0.00-0.4) % Nucleat RBC Rel Count 0.0 (0.00-0.1) % Eos # (Auto) 0.52 H (0-0.5) x10^3/uL Immature Gran # (Auto) 0.08 H (0.00-0.03) x10^3u/L Absolute Lymphs (auto) 2.32 (1.0-4.6) x10^3/uL Absolute Monos (auto) 0.51 (0.0-1.3) x10^3/uL Absolute Nucleated RBC 0.00 (0.00-0.01) x10^3u/L Lymphocytes % 22.3 L (24.0-44.0) % Monocytes % 4.9 (0.0-12.0) % Eosinophils % 5.0 (0.00-5.0) % Basophils % 0.3 (0.0-0.4) % Absolute Granulocytes 6.95 H (1.4-6.9) x10^3/uL Basophils # 0.03 (0-0.4) x10^3/uL PT (9.4-12.5) SECONDS INR (0.8-3.0) APTT (25.1-36.5) SECONDS Fibrinogen Activity (200-400) mg/dL D-Dimer (0.0-0.50) mg/L Sodium (137-145) mmol/L Potassium (3.5-5.1) mmol/L Chloride (98-107) mmol/L Carbon Dioxide (22-30) mmol/L Anion Gap (5-15) MEQ/L BUN (7-17) mg/dL Creatinine (0.52-1.04) mg/dL Estimated GFR ML/MIN Glucose (74-106) mg/dL Uric Acid (2.6-6.0) mg/dL Calcium (8.4-10.2) mg/dL Magnesium (1.6-2.3) mg/dL Total Bilirubin (0.2-1.3) mg/dL AST (14-36) U/L ALT (0-35) U/L Alkaline Phosphatase (38-126) U/L Lactate Dehydrogenase (120-246) U/L Serum Total Protein (6.3-8.2) g/dL Albumin (3.5-5.0) g/dL Urine Color Yellow (Yellow) Urine Appearance Cloudy A (Clear) Urine pH 5.5 (4.6-8.0) Ur Specific [place] >=1.030 A (1.005-1.030) Urine Protein 100 A (Negative) Urine Glucose (UA) Negative (Negative) mg/dL Urine Ketones 80 A (Negative) Urine Blood Large A (Negative) Urine Nitrite Negative (Negative) Urine Bilirubin Negative (Negative) Urine Urobilinogen 1.0 A (0.2) mg/dL Ur Leukocyte Esterase Small A (Negative) U Hyaline Cast (Auto) NONE SEEN (0-2) /LPF Urine Microscopic RBC >100 A (0-5) /HPF Urine Microscopic WBC 51-100 A (0-5) /HPF Ur Epithelial Cells Few (None Seen) /HPF Urine Bacteria None Seen (None Seen) /HPF Urine Culture Reflexed YES (NO) Urine Opiates Level NEGATIVE (NEGATIVE) Ur Methadone NEGATIVE (NEGATIVE) Urine Barbiturates NEGATIVE (NEGATIVE) Ur Phencyclidine (PCP) NEGATIVE (NEGATIVE) Urine Amphetamine NEGATIVE (NEGATIVE) U Benzodiazepine Level NEGATIVE (NEGATIVE) Urine Cocaine NEGATIVE (NEGATIVE) Urine Marijuana (THC) NEGATIVE (NEGATIVE) 08/09/23 08/09/23 08/09/23 Range/Units 14:38 14:38 15:48 WBC (4.0-10.5) x10^3/uL RBC (4.1-5.4) x10^6/uL Hgb (12.0-16.0) g/dL Hct (35-47) % MCV (78-100) fL MCH (26-32) pg MCHC (32-36) g/dL RDW (11.5-14.0) % Plt Count (150-450) x10^3/uL MPV (7.5-11.0) fL Gran % (36.0-66.0) % Immature Gran % (Auto) (0.00-0.4) % Nucleat RBC Rel Count (0.00-0.1) % Eos # (Auto) (0-0.5) x10^3/uL Immature Gran # (Auto) (0.00-0.03) x10^3u/L Absolute Lymphs (auto) (1.0-4.6) x10^3/uL Absolute Monos (auto) (0.0-1.3) x10^3/uL Absolute Nucleated RBC (0.00-0.01) x10^3u/L Lymphocytes % (24.0-44.0) % Monocytes % (0.0-12.0) % Eosinophils % (0.00-5.0) % Basophils % (0.0-0.4) % Absolute Granulocytes (1.4-6.9) x10^3/uL Basophils # (0-0.4) x10^3/uL PT 9.8 (9.4-12.5) SECONDS INR 0.89 (0.8-3.0) APTT 25.2 (25.1-36.5) SECONDS Fibrinogen Activity 487 H (200-400) mg/dL D-Dimer 1.58 H* (0.0-0.50) mg/L Sodium 137 (137-145) mmol/L Potassium 3.9 (3.5-5.1) mmol/L Chloride 108 H (98-107) mmol/L Carbon Dioxide 19 L (22-30) mmol/L Anion Gap 13.6 (5-15) MEQ/L BUN 15 (7-17) mg/dL Creatinine 0.60 (0.52-1.04) mg/dL Estimated GFR 127.7 ML/MIN Glucose 82 (74-106) mg/dL Uric Acid 7.1 H (2.6-6.0) mg/dL Calcium 8.7 (8.4-10.2) mg/dL Magnesium 2.0 (1.6-2.3) mg/dL Total Bilirubin 0.30 (0.2-1.3) mg/dL AST 36 (14-36) U/L ALT 39 H (0-35) U/L Alkaline Phosphatase 123 (38-126) U/L Lactate Dehydrogenase 328 H (120-246) U/L Serum Total Protein 7.3 (6.3-8.2) g/dL Albumin 3.8 (3.5-5.0) g/dL Urine Color (Yellow) Urine Appearance (Clear) Urine pH (4.6-8.0) Ur Specific [place] (1.005-1.030) Urine Protein (Negative) Urine Glucose (UA) (Negative) mg/dL Urine Ketones (Negative) Urine Blood (Negative) Urine Nitrite (Negative) Urine Bilirubin (Negative) Urine Urobilinogen (0.2) mg/dL Ur Leukocyte Esterase (Negative) U Hyaline Cast (Auto) (0-2) /LPF Urine Microscopic RBC (0-5) /HPF Urine Microscopic WBC (0-5) /HPF Ur Epithelial Cells (None Seen) /HPF Urine Bacteria (None Seen) /HPF Urine Culture Reflexed (NO) Urine Opiates Level (NEGATIVE) Ur Methadone (NEGATIVE) Urine Barbiturates (NEGATIVE) Ur Phencyclidine (PCP) (NEGATIVE) Urine Amphetamine (NEGATIVE) U Benzodiazepine Level (NEGATIVE) Urine Cocaine (NEGATIVE) Urine Marijuana (THC) (NEGATIVE) 08/10/23 08/10/23 08/10/23 Range/Units 00:32 06:42 06:42 WBC 9.3 (4.0-10.5) x10^3/uL RBC 3.81 L (4.1-5.4) x10^6/uL Hgb 9.7 L (12.0-16.0) g/dL Hct 31.4 L (35-47) % MCV 82.4 (78-100) fL MCH 25.5 L (26-32) pg MCHC 30.9 L (32-36) g/dL RDW 15.9 H (11.5-14.0) % Plt Count 246 (150-450) x10^3/uL MPV 9.3 (7.5-11.0) fL Gran % 65.5 (36.0-66.0) % Immature Gran % (Auto) 0.8 H (0.00-0.4) % Nucleat RBC Rel Count 0.0 (0.00-0.1) % Eos # (Auto) 0.48 (0-0.5) x10^3/uL Immature Gran # (Auto) 0.07 H (0.00-0.03) x10^3u/L Absolute Lymphs (auto) 2.09 (1.0-4.6) x10^3/uL Absolute Monos (auto) 0.55 (0.0-1.3) x10^3/uL Absolute Nucleated RBC 0.00 (0.00-0.01) x10^3u/L Lymphocytes % 22.4 L (24.0-44.0) % Monocytes % 5.9 (0.0-12.0) % Eosinophils % 5.1 H (0.00-5.0) % Basophils % 0.3 (0.0-0.4) % Absolute Granulocytes 6.11 (1.4-6.9) x10^3/uL Basophils # 0.03 (0-0.4) x10^3/uL PT (9.4-12.5) SECONDS INR (0.8-3.0) APTT (25.1-36.5) SECONDS Fibrinogen Activity (200-400) mg/dL D-Dimer (0.0-0.50) mg/L Sodium (137-145) mmol/L Potassium (3.5-5.1) mmol/L Chloride (98-107) mmol/L Carbon Dioxide (22-30) mmol/L Anion Gap (5-15) MEQ/L BUN (7-17) mg/dL Creatinine (0.52-1.04) mg/dL Estimated GFR ML/MIN Glucose (74-106) mg/dL Uric Acid (2.6-6.0) mg/dL Calcium (8.4-10.2) mg/dL Magnesium 6.4 H* 7.1 H* (1.6-2.3) mg/dL Total Bilirubin (0.2-1.3) mg/dL AST (14-36) U/L ALT (0-35) U/L Alkaline Phosphatase (38-126) U/L Lactate Dehydrogenase (120-246) U/L Serum Total Protein (6.3-8.2) g/dL Albumin (3.5-5.0) g/dL Urine Color (Yellow) Urine Appearance (Clear) Urine pH (4.6-8.0) Ur Specific [place] (1.005-1.030) Urine Protein (Negative) Urine Glucose (UA) (Negative) mg/dL Urine Ketones (Negative) Urine Blood (Negative) Urine Nitrite (Negative) Urine Bilirubin (Negative) Urine Urobilinogen (0.2) mg/dL Ur Leukocyte Esterase (Negative) U Hyaline Cast (Auto) (0-2) /LPF Urine Microscopic RBC (0-5) /HPF Urine Microscopic WBC (0-5) /HPF Ur Epithelial Cells (None Seen) /HPF Urine Bacteria (None Seen) /HPF Urine Culture Reflexed (NO) Urine Opiates Level (NEGATIVE) Ur Methadone (NEGATIVE) Urine Barbiturates (NEGATIVE) Ur Phencyclidine (PCP) (NEGATIVE) Urine Amphetamine (NEGATIVE) U Benzodiazepine Level (NEGATIVE) Urine Cocaine (NEGATIVE) Urine Marijuana (THC) (NEGATIVE) 08/10/23 Range/Units 06:42 WBC (4.0-10.5) x10^3/uL RBC (4.1-5.4) x10^6/uL Hgb (12.0-16.0) g/dL Hct (35-47) % MCV (78-100) fL MCH (26-32) pg MCHC (32-36) g/dL RDW (11.5-14.0) % Plt Count (150-450) x10^3/uL MPV (7.5-11.0) fL Gran % (36.0-66.0) % Immature Gran % (Auto) (0.00-0.4) % Nucleat RBC Rel Count (0.00-0.1) % Eos # (Auto) (0-0.5) x10^3/uL Immature Gran # (Auto) (0.00-0.03) x10^3u/L Absolute Lymphs (auto) (1.0-4.6) x10^3/uL Absolute Monos (auto) (0.0-1.3) x10^3/uL Absolute Nucleated RBC (0.00-0.01) x10^3u/L Lymphocytes % (24.0-44.0) % Monocytes % (0.0-12.0) % Eosinophils % (0.00-5.0) % Basophils % (0.0-0.4) % Absolute Granulocytes (1.4-6.9) x10^3/uL Basophils # (0-0.4) x10^3/uL PT (9.4-12.5) SECONDS INR (0.8-3.0) APTT (25.1-36.5) SECONDS Fibrinogen Activity (200-400) mg/dL D-Dimer (0.0-0.50) mg/L Sodium 135 L (137-145) mmol/L Potassium 3.4 L (3.5-5.1) mmol/L Chloride 107 (98-107) mmol/L Carbon Dioxide 20 L (22-30) mmol/L Anion Gap 11.7 (5-15) MEQ/L BUN 7 (7-17) mg/dL Creatinine 0.45 L (0.52-1.04) mg/dL Estimated GFR 136.8 ML/MIN Glucose 96 (74-106) mg/dL Uric Acid (2.6-6.0) mg/dL Calcium 6.2 L D (8.4-10.2) mg/dL Magnesium (1.6-2.3) mg/dL Total Bilirubin 0.30 (0.2-1.3) mg/dL AST 27 (14-36) U/L ALT 28 (0-35) U/L Alkaline Phosphatase 118 (38-126) U/L Lactate Dehydrogenase (120-246) U/L Serum Total Protein 6.1 L (6.3-8.2) g/dL Albumin 3.1 L (3.5-5.0) g/dL Urine Color (Yellow) Urine Appearance (Clear) Urine pH (4.6-8.0) Ur Specific [place] (1.005-1.030) Urine Protein (Negative) Urine Glucose (UA) (Negative) mg/dL Urine Ketones (Negative) Urine Blood (Negative) Urine Nitrite (Negative) Urine Bilirubin (Negative) Urine Urobilinogen (0.2) mg/dL Ur Leukocyte Esterase (Negative) U Hyaline Cast (Auto) (0-2) /LPF Urine Microscopic RBC (0-5) /HPF Urine Microscopic WBC (0-5) /HPF Ur Epithelial Cells (None Seen) /HPF Urine Bacteria (None Seen) /HPF Urine Culture Reflexed (NO) Urine Opiates Level (NEGATIVE) Ur Methadone (NEGATIVE) Urine Barbiturates (NEGATIVE) Ur Phencyclidine (PCP) (NEGATIVE) Urine Amphetamine (NEGATIVE) U Benzodiazepine Level (NEGATIVE) Urine Cocaine (NEGATIVE) Urine Marijuana (THC) (NEGATIVE) Micro Results-Entire Visit: Microbiology 08/09/23 14:27 Urine Culture - Preliminary Clean Catch Midstream GRAM POSITIVE ID AND SENSITIVITY PENDING Final Diagnosis/Problem List - Final Discharge Diagnosis/Problem (1) Preeclampsia in period Current Visit: Yes Status: Acute Code(s): O14.95 - UNSPECIFIED PRE- ECLAMPSIA, COMPLICATING THE PUERPERIUM (2) Urinary tract bacterial infections Current Visit: Yes Status: Acute Code(s): N39.0 - URINARY TRACT INFECTION, SITE NOT SPECIFIED; A49.9 - BACTERIAL INFECTION, UNSPECIFIED - Discharge Disposition: Home, Self-Care Condition: Fair Prescriptions: New Labetalol HCl 100 mg [Trandate 100 MG] 200 mg PO BID #60 tablet No Action Levothyroxine Sodium 50 Mcg [Synthroid 50 Mcg] 50 mcg PO DAILY Ferrous Sulfate 325 mg [Feosol 325 mg] 325 mg PO BID #60 tablet Follow up with: JASE SOLORIO NP [Primary Care Provider] - MARYLOU SHERIFF DO [ACTIVE STAFF] - 08/18/23 (should fu in office in 1 wk for bp evaluation)
[2023-08-10 12:10] VITALS: O2SAT 98
[2023-08-10 13:28] VITALS: PULSE 84
[2023-08-10 13:29] VITALS: RESP 18
[2023-08-10] MEDS ORDERED: ROCEPHIN 1 Gm-D5w 50 ml Bag** 1 G/50 ML IVPB IV SCH (13:30)
[2023-08-10 16:11] VITALS: BP 143/93
== END 2023-08-10 18:30 | disposition home or self-care (01) ==
LOC: ED 13:53 → OB 17:57
PROVIDERS: ADMIT Obstetrics & Gynecology; ATTEND Obstetrics & Gynecology
DX: O14.95 Unspecified pre-eclampsia, complicating the puerperium (principal); N39.0 Urinary tract infection, site not specified; A49.9 Bacterial infection, unspecified; Z79.899 Other long term (current) drug therapy; Z20.828 Contact with and (suspected) exposure to other viral communicable diseases
CPT/HCPCS: 36000; 36415; 51702; 80053; 80307; 81001; 83615; 83735; 84550; 85025; 85379; 85384; 85610; 85730; 87077; 87086; 87186; 96374; 96375; 99285; G0378; J0360; J0696; J2060; J2405; A9270-GY

== ENCOUNTER 2024-01-05 10:38 | Emergency (ER) | payer BC, OTHER ==
--- NOTE | 2024-01-05 10:45 | ERPHSYRPT ---
- History of Present Illness Time Seen by Provider: 01/05/24 10:44 Source: patient, family Exam Limitations: no limitations Physician History: This is a 28-year-old white female patient who has a history of hypothyroidism and migraine headaches and presents to the emergency department with elevated blood pressure. She took her blood pressure at home and the systolic blood pressure was in the 170s. Patient arrives to the emergency department by private vehicle and again, the systolic blood pressure was in the 170s and the diastolic blood pressure was 120s. Patient was on a beta-lloyd until up approximately the beginning of 2023. Patient was preeclamptic during her most recent . Patient is currently on her menstrual period. Patient states that in the last 2 weeks, she has intermittently felt funny which she describes as "feeling drunk". This morning, her symptoms were more persistent and that is why she took her blood pressure reading at home. She denies chest pain. She denies shortness of breath. She denies abdominal pain. She has had no nausea vomiting or diarrhea symptoms. Timing/Duration: week(s) (Symptoms in the last 2 weeks), worse (Worst symptoms today.) Allergies/Adverse Reactions: No Known Drug Allergies Allergy (Verified 08/09/23 14:09) Home Medications: l-Norgest/E.estradiol-E.estrad [Ashlyna 0.15-0.03-0.01 mg Tab] 1 each PO DAILY 01/05/24 [History] Hx Influenza Vaccination/Date Given: No Hx Pneumococcal Vaccination/Date Given: No Travel Risk - International Travel Have you traveled outside of the country in past 3 weeks: No - Emerging Infectious Disease Are you exhibiting symptoms associated with any current EIDs: No - Review of Systems Constitutional: No Symptoms Eyes: No Symptoms Ears, Nose, & Throat: No Symptoms Respiratory: No Symptoms Cardiac: No Symptoms Abdominal/Gastrointestinal: No Symptoms Genitourinary Symptoms: No Symptoms Musculoskeletal: No Symptoms Skin: No Symptoms Neurological: Other (Feels as though she is drunk) Psychological: No Symptoms Endocrine: No Symptoms Hematologic/Lymphatic: No Symptoms Immunological/Allergic: No Symptoms All Other Systems: Reviewed and Negative - Past Medical History Pertinent Past Medical History: Yes Neurological History: Migraines ENT History: No Pertinent History Cardiac History: No Pertinent History Respiratory History: No Pertinent History Endocrine Medical History: Hypothyroidism Musculoskeletal History: No Pertinent History GI Medical History: No Pertinent History History: No Pertinent History Psycho-Social History: No Pertinent History Female Reproductive Disorders: No Pertinent History - Past Surgical History Past Surgical History: Yes (wisdom tooth extraction) Neuro Surgical History: No Pertinent History Cardiac: No Pertinent History Respiratory: No Pertinent History Gastrointestinal: No Pertinent History Genitourinary: No Pertinent History Musculoskeletal: No Pertinent History Female Surgical History: No Pertinent History - Social History Smoking Status: Never smoker Exposure to second hand smoke: No Drug Use: none Patient Lives Alone: No - Nursing Vital Signs Nursing Vital Signs: Initial Vital Signs Temperature 98.0 F 01/05/24 10:46 Pulse Rate 88 01/05/24 10:46 Respiratory Rate 20 01/05/24 10:46 Blood Pressure 177/124 01/05/24 10:46 O2 Sat by Pulse Oximetry 98 01/05/24 10:46 Pain Scale Pain Intensity 0 - Physical Exam General Appearance: no apparent distress, alert, anxiety, thin Eye Exam: PERRL/EOMI, eyes nml inspection Ears, Nose, Throat Exam: normal ENT inspection, moist mucous membranes Neck Exam: normal inspection, non-tender, supple, full range of motion Respiratory Exam: normal breath sounds, chest tenderness, lungs clear, respiratory distress Cardiovascular Exam: regular rate/rhythm, normal heart sounds, normal peripheral pulses Gastrointestinal/Abdomen Exam: soft, normal bowel sounds, No tenderness Pelvic Exam: not done Rectal Exam: not done Back Exam: normal inspection, normal range of motion, No CVA tenderness, No vertebral tenderness Extremity Exam: normal inspection, normal range of motion, pelvis stable Neurologic Exam: alert, oriented x 3, cooperative, employee relations manager II-XII nml as tested, normal mood/affect, nml cerebellar function, nml station & gait, sensation nml Skin Exam: normal color, warm, dry Lymphatic Exam: No adenopathy SpO2 Interpretation: normal O2 Delivery: Room Air - Course Nursing assessment & vital signs reviewed: Yes EKG Interpreted by Me: RATE (85), Sinus Rhythm, NORMAL AXIS, NORMAL INTERVALS, NORMAL QRS, NORMAL ST-T, Other (No acute ischemic changes on today's twelve-lead EKG. No comparison twelve-lead EKG available.) Ordered Tests: Active Orders 24 hr Category Date Time Status Director Clinical Information Services STAT Care 01/05/24 11:06 Active EKG-ER Only STAT Care 01/05/24 11:05 Active IV Insertion STAT Care 01/05/24 11:05 Active Pulse Oximetry (ED) STAT Care 01/05/24 11:05 Active CBC W DIFF Stat Lab 01/05/24 11:05 Completed CMP Stat Lab 01/05/24 11:05 Completed HCG QUALITATIVE, SERUM Stat Lab 01/05/24 11:15 Completed MAGNESIUM Stat Lab 01/05/24 11:05 Completed UA W/RFX UR CULTURE Stat Lab 01/05/24 11:12 Completed Urine Triage Profile Stat Lab 01/05/24 11:12 Completed Medication Summary Discontinued Medications Generic Name Dose Route Start Last Admin Trade Name Freq PRN Reason Stop Dose Admin Hydralazine HCl 5 mg 01/05/24 11:06 01/05/24 11:15 Hydralazine Hcl 20 Mg/Ml Vial IV 01/05/24 11:07 5 mg STAT ONE Administration Hydralazine HCl Confirm 01/05/24 11:12 Hydralazine Hcl 20 Mg/Ml Vial Administered 01/05/24 11:13 Dose 20 mg .ROUTE .STK-MED ONE Lab/Rad Data: Laboratory Result Diagrams 01/05/24 11:05 01/05/24 11:05 Laboratory Results 01/05/24 01/05/24 01/05/24 Range/Units 11:15 11:12 11:12 WBC (4.0-10.5) x10^3/uL RBC (4.1-5.4) x10^6/uL Hgb (12.0-16.0) g/dL Hct (35-47) % MCV (78-100) fL MCH (26-32) pg MCHC (32-36) g/dL RDW (11.5-14.0) % Plt Count (150-450) x10^3/uL MPV (7.5-11.0) fL Gran % (36.0-66.0) % Immature Gran % (Auto) (0.00-0.4) % Nucleat RBC Rel Count (0.00-0.1) % Eos # (Auto) (0-0.5) x10^3/uL Immature Gran # (Auto) (0.00-0.03) x10^3u/L Absolute Lymphs (auto) (1.0-4.6) x10^3/uL Absolute Monos (auto) (0.0-1.3) x10^3/uL Absolute Nucleated RBC (0.00-0.01) x10^3u/L Lymphocytes % (24.0-44.0) % Monocytes % (0.0-12.0) % Eosinophils % (0.00-5.0) % Basophils % (0.0-0.4) % Absolute Granulocytes (1.4-6.9) x10^3/uL Basophils # (0-0.4) x10^3/uL Sodium (135-145) mmol/L Potassium (3.5-5.1) mmol/L Chloride (98-107) mmol/L Carbon Dioxide (22-30) mmol/L Anion Gap (5-15) MEQ/L BUN (7-17) mg/dL Creatinine (0.52-1.04) mg/dL Estimated GFR ML/MIN Glucose (74-106) mg/dL Calcium (8.4-10.2) mg/dL Magnesium (1.6-2.3) mg/dL Total Bilirubin (0.2-1.3) mg/dL AST (14-36) U/L ALT (0-35) U/L Alkaline Phosphatase (38-126) U/L Serum Total Protein (6.3-8.2) g/dL Albumin (3.5-5.0) g/dL Serum HCG, Qual NEGATIVE (NEGATIVE) Urine Color Yellow (Yellow) Urine Appearance Clear (Clear) Urine pH 6.5 (4.6-8.0) Ur Specific [place] <=1.005 (1.005-1.030) Urine Protein Negative (Negative) Urine Glucose (UA) Negative (Negative) mg/dL Urine Ketones Negative (Negative) Urine Blood Negative (Negative) Urine Nitrite Negative (Negative) Urine Bilirubin Negative (Negative) Urine Urobilinogen 0.2 (0.2) mg/dL Ur Leukocyte Esterase Negative (Negative) U Hyaline Cast (Auto) NONE SEEN (0-2) /LPF Urine Microscopic RBC 0-2 (0-5) /HPF Urine Microscopic WBC 0-2 (0-5) /HPF Ur Epithelial Cells None Seen (None Seen) /HPF Urine Bacteria None Seen (None Seen) /HPF Urine Culture Reflexed NO (NO) Urine Opiates Level NEGATIVE (NEGATIVE) Ur Methadone NEGATIVE (NEGATIVE) Urine Barbiturates NEGATIVE (NEGATIVE) Ur Phencyclidine (PCP) NEGATIVE (NEGATIVE) Urine Amphetamine NEGATIVE (NEGATIVE) U Benzodiazepine Level NEGATIVE (NEGATIVE) Urine Cocaine NEGATIVE (NEGATIVE) Urine Marijuana (THC) NEGATIVE (NEGATIVE) 01/05/24 01/05/24 Range/Units 11:05 11:05 WBC 9.7 (4.0-10.5) x10^3/uL RBC 5.09 (4.1-5.4) x10^6/uL Hgb 12.7 (12.0-16.0) g/dL Hct 40.4 (35-47) % MCV 79.4 (78-100) fL MCH 25.0 L (26-32) pg MCHC 31.4 L (32-36) g/dL RDW 13.2 (11.5-14.0) % Plt Count 410 (150-450) x10^3/uL MPV 9.8 (7.5-11.0) fL Gran % 53.6 (36.0-66.0) % Immature Gran % (Auto) 0.3 (0.00-0.4) % Nucleat RBC Rel Count 0.0 (0.00-0.1) % Eos # (Auto) 0.51 H (0-0.5) x10^3/uL Immature Gran # (Auto) 0.03 (0.00-0.03) x10^3u/L Absolute Lymphs (auto) 3.42 (1.0-4.6) x10^3/uL Absolute Monos (auto) 0.47 (0.0-1.3) x10^3/uL Absolute Nucleated RBC 0.00 (0.00-0.01) x10^3u/L Lymphocytes % 35.4 (24.0-44.0) % Monocytes % 4.9 (0.0-12.0) % Eosinophils % 5.3 H (0.00-5.0) % Basophils % 0.5 (0.0-0.4) % Absolute Granulocytes 5.19 (1.4-6.9) x10^3/uL Basophils # 0.05 (0-0.4) x10^3/uL Sodium 139 (135-145) mmol/L Potassium 3.6 (3.5-5.1) mmol/L Chloride 107 (98-107) mmol/L Carbon Dioxide 21 L (22-30) mmol/L Anion Gap 13.5 (5-15) MEQ/L BUN 10 (7-17) mg/dL Creatinine 0.68 (0.52-1.04) mg/dL Estimated GFR 123.1 ML/MIN Glucose 77 (74-106) mg/dL Calcium 9.0 (8.4-10.2) mg/dL Magnesium 1.8 (1.6-2.3) mg/dL Total Bilirubin 0.70 (0.2-1.3) mg/dL AST 21 (14-36) U/L ALT 11 (0-35) U/L Alkaline Phosphatase 49 (38-126) U/L Serum Total Protein 8.0 (6.3-8.2) g/dL Albumin 4.5 (3.5-5.0) g/dL Serum HCG, Qual (NEGATIVE) Urine Color (Yellow) Urine Appearance (Clear) Urine pH (4.6-8.0) Ur Specific [place] (1.005-1.030) Urine Protein (Negative) Urine Glucose (UA) (Negative) mg/dL Urine Ketones (Negative) Urine Blood (Negative) Urine Nitrite (Negative) Urine Bilirubin (Negative) Urine Urobilinogen (0.2) mg/dL Ur Leukocyte Esterase (Negative) U Hyaline Cast (Auto) (0-2) /LPF Urine Microscopic RBC (0-5) /HPF Urine Microscopic WBC (0-5) /HPF Ur Epithelial Cells (None Seen) /HPF Urine Bacteria (None Seen) /HPF Urine Culture Reflexed (NO) Urine Opiates Level (NEGATIVE) Ur Methadone (NEGATIVE) Urine Barbiturates (NEGATIVE) Ur Phencyclidine (PCP) (NEGATIVE) Urine Amphetamine (NEGATIVE) U Benzodiazepine Level (NEGATIVE) Urine Cocaine (NEGATIVE) Urine Marijuana (THC) (NEGATIVE) - Progress Progress: improved, re-examined Progress Note: 01/05/24 11:01 My medical decision making and the assignment of moderate complexity of this patient's medical issues based on review the patient's past medical history, review of the patient's medication list, review of patient drug allergy list, history present illness and physical findings on examination. This patient's workup includes twelve-lead EKG, placement of intravenous line, CBC, CMP, urinalysis. I will also order a test and provide the patient with 5 mg intravenously of hydralazine. 01/05/24 11:04 Differential diagnosis includes preeclampsia hypertension, hypertension, hypertensive urgency. 01/05/24 11:42 The patient's current blood pressure is 130/101. This has significantly improved after hydralazine intravenously. I reviewed and interpreted the patient's laboratory data results and there are no significant or emergent findings based on her laboratory data results. We will remotely send a prescription for beta-lloyd to her pharmacy. Counseled pt/family regarding: lab results, diagnosis, need for follow-up Medical Desision Making - Independent Historian Additional History obtained from: Mother - Diagnostic Testing Diagnostic test were ordered, analyzed, and reviewed by me: Yes - Departure Departure Disposition: Home Clinical Impression: Hypertension Condition: Stable Critical Care Time: No Referrals: JASE SOLORIO NP [Primary Care Provider] - Follow up/PCP as directed Additional Instructions: Take your medications as prescribed. Call your primary care provider today, 01/05/2024, to make arrangements for follow-up appointment for further evaluation and management. Keep a morning, noon and night daily log of your blood pressure readings until you are seen by your primary care physician. Prescriptions: Metoprolol Tartrate 25 mg [Lopressor 25MG Tab] 25 mg PO BID #20 tab
[2024-01-05 10:54] VITALS: RESP 20; TEMP 98
[2024-01-05 11:09] LABS: Absolute Neutrophil Ct (ANC) 5.19 x10^3/uL (1.4-6.9); BASOPHIL % 0.5 % (0.0-0.4); Basophil (Absolute #) 0.05 x10^3/uL (0-0.4); Eosinophil % 5.3 % (0.00-5.0); Eosinophil (Absolute #) 0.51 x10^3/uL (0-0.5); Hematocrit 40.4 % (35-47); Hemoglobin 12.7 g/dL (12.0-16.0); IMMATURE GRAN # 0.03 x10^3u/L (0.00-0.03); IMMATURE GRAN % 0.3 % (0.00-0.4); Lymphocyte (Absolute #) 3.42 x10^3/uL (1.0-4.6); Lymphocytes % 35.4 % (24.0-44.0); Mean Cell Volume 79.4 fL (78-100); Mean Corpuscular Hgb Concent. 31.4 g/dL (32-36); Mean Platelet Volume 9.8 fL (7.5-11.0); Monocyte (Absolute #) 0.47 x10^3/uL (0.0-1.3); Monocytes % 4.9 % (0.0-12.0); Neutrophil % 53.6 % (36.0-66.0); Platelet Count 410 x10^3/uL (150-450); Red Blood Count 5.09 x10^6/uL (4.1-5.4); Red Cell Distribution Width 13.2 % (11.5-14.0); White Blood Count 9.7 x10^3/uL (4.0-10.5)
[2024-01-05 11:12] LABS: Appearance Clear (Clear); Bilirubin Negative (Negative); Blood Negative (Negative); Glucose, Urine Negative (Negative); Ketones Negative (Negative); Leukocyte Esterase Negative (Negative); Nitrite Negative (Negative); Ph 6.5 (4.6-8.0); Protein,Urine Dip Negative (Negative); Specific Gravity <=1.005 (1.005-1.030); Urobilinogen 0.2 mg/dL (0.2)
[2024-01-05] MEDS ORDERED: APRESOLINE 20 MG/ML INJ ONE (11:12)
[2024-01-05 11:15] LABS: HCG SERUM TEST NEGATIVE (NEGATIVE)
[2024-01-05] MEDS: APRESOLINE 20 MG/ML INJ IV ONE (11:15)
[2024-01-05 11:17] LABS: ALBUMIN 4.5 g/dL (3.5-5.0); ANION GAP 13.5 MEQ/L (5-15); BILIRUBIN,TOTAL 0.7 mg/dL (0.2-1.3); Creatinine 1 0.68 mg/dL (0.52-1.04); EST GLOMERULAR FILTRATION RATE 123.1 ML/MIN; MAGNESIUM 1.8 mg/dL (1.6-2.3); Potassium 3.6 mmol/L (3.5-5.1)
[2024-01-05 11:28] VITALS: BP 139/107; PULSE 84; O2SAT 98
[2024-01-05 11:28] LABS: Amphetamine,Urine NEGATIVE (NEGATIVE); Barbiturate,Urine NEGATIVE (NEGATIVE); Benzodiazepine,Urine NEGATIVE (NEGATIVE); Cocaine,Urine NEGATIVE (NEGATIVE); Methadone,Urine NEGATIVE (NEGATIVE); Opiate,Urine NEGATIVE (NEGATIVE); PCP,Urine NEGATIVE (NEGATIVE); THC,Urine NEGATIVE (NEGATIVE)
[2024-01-05 11:30] LABS: Bacteria None Seen /HPF (None Seen); Epithelial Cells None Seen /HPF (None Seen); Hyaline Casts NONE SEEN /LPF (0-2); RBC 0-2 /HPF (0-5); WBC 0-2 /HPF (0-5)
[2024-01-05 11:31] LABS: ADD URINE CULTURE? NO (NO)
== END 2024-01-05 12:16 | disposition home or self-care (01) ==
LOC: ED 10:38
DX: I10 Essential (primary) hypertension (principal); Z79.899 Other long term (current) drug therapy
CPT/HCPCS: 36000; 36415; 80053; 80307; 81001; 83735; 84703; 85025; 93005; 93041; 94760; 96374; 99284; J0360